=== PATIENT | male | born 1950 | race American Indian/Alaskan Native ===

== ENCOUNTER 2018-03-12 10:57 | Day surgery (SDC) | payer BC, MEDICARE ==
[2018-03-12 12:20] LABS: Basophils # (Auto) 0.1 K/mm3 (0.0-0.1); Basophils % (Auto) 1.2 % (0.0-1.8); Eosinophils # (Auto) 0.3 K/mm3 (0.0-0.4); Eosinophils % (Auto) 5.7 % (0.0-4.3); Hematocrit 45.5 % (35.5-45.6); Hemoglobin 14.9 gm/dl (11.8-15.2); Lymphocytes # (Auto) 1.5 K/mm3 (1.2-5.4); Lymphocytes % (Auto) 32.8 % (13.4-35.0); Mean Corpuscular HGB Conc 33 % (32-34); Mean Corpuscular Hemoglobin 30 pg (28-32); Mean Corpuscular Volume 91 fl (84-94); Monocytes # (Auto) 0.3 K/mm3 (0.0-0.8); Monocytes % (Auto) 7.4 % (0.0-7.3); Platelet Count 206 K/mm3 (140-440); Red Blood Count 4.99 M/mm3 (3.65-5.03); Red Cell Distribution Width 14.3 % (13.2-15.2)
[2018-03-12 12:30] LABS: INR 0.99 (0.87-1.13)
[2018-03-12 12:31] LABS: Partial Thromboplastin Time 33.3 Sec. (24.2-36.6)
[2018-03-12 12:50] LABS: Alanine Aminotransferase 8 units/L (7-56); Albumin 3.8 g/dL (3.9-5); BUN/Creatinine Ratio 10; Blood Urea Nitrogen 8 mg/dL (9-20); Calcium 11.2 mg/dL (8.4-10.2); Hemolysis Index 14
[2018-03-12] MEDS ORDERED: NACL 0.9% 1000 ML 1,000 ML IV SCH (13:00)
[2018-03-12] MEDS ORDERED: LEVAQUIN 500MG/100ML 500 MG/100 ML BAG IV NR (13:03)
[2018-03-12] MEDS ORDERED: XYLOCAINE 2% INFILTRATI ONE (13:07)
[2018-03-12] MEDS ORDERED: HEPARIN/NS 5000 UNIT/500ML(CATH LAB) 1,000 ML IR ONE (13:07)
[2018-03-12] MEDS ORDERED: HEPARIN 10,000 UNITS/10 ML ONE (13:07)
[2018-03-12] MEDS ORDERED: VERSED IV ONE (13:08)
[2018-03-12] MEDS ORDERED: SUBLIMAZE ONE (13:08)
--- NOTE | 2018-03-12 14:49 | Cat Scan Report ---
FINAL REPORT EXAM: CT ABDOMEN PELVIS WO CON HISTORY: kideny stones TECHNIQUE: CT examination of the ABDOMEN without IV contrast CT examination of the PELVIS without IV contrast PRIORS: None. FINDINGS: Nonspecific numerous nodules in both lung bases. Largest is 7.5 mm in the right lower lobe, series 2, image 7. Normal noncontrast appearance of the liver, gallbladder, adrenals, pancreas, and spleen. Normal caliber abdominal aorta with slight calcified atherosclerotic plaque. Normal caliber IVC. Nonspecific, smoothly marginated, simple appearing, low density bilateral renal lesions are statistically most likely cysts. Otherwise normal-appearing left kidney and ureter. Slight right hydronephrosis in the right kidney to the level of a large calculus in the right renal pelvis extending to the UPJ. Approximate transverse dimensions are 14 x 23 mm. Approximate sagittal dimension 26 mm. Slight fat stranding is nonspecific adjacent to the right renal pelvis. This may be postobstructive edema or pyelonephritis. Right mid and distal ureter normal. Severe prostate enlargement with mass effect on the urinary bladder base. Approximate transverse dimension 8.2 x 8.9 cm. Approximate sagittal dimension 9.4 cm including enlarged median lobe. Very small fat containing umbilical hernia. Very small bilateral fat containing inguinal hernia. Normal-appearing stomach and duodenum. Nonspecific scattered prominence of gas and fluid in the abdomen and pelvic small bowel without gross distention. This may reflect paralytic ileus. No pelvic free fluid. Normal-appearing seminal vesicles and slightly displaced urinary bladder by the enlarged prostate. Normal-appearing rectum. Moderate sigmoid diverticulosis without definite CT evidence of diverticulitis. Slight diverticulosis ascending colon. Normal-appearing cecum, terminal ileum, and appendix. No retroperitoneal adenopathy. No evidence of mesenteric mass. Scattered prominence of feces and gas throughout the nondistended colon may reflect a combination of mild constipation and mild paralytic ileus. IMPRESSION: Multiple bilateral pulmonary lung base nodules. Recommend followup chest CT to fully evaluate both lungs Large calculus in right UPJ with slight proximal right hydronephrosis. Fat stranding adjacent to the right renal pelvis may be postobstructive edema. Differential includes right pyelonephritis Severe prostate enlargement with mass effect on otherwise normal-appearing urinary bladder Very small fat containing hernias Prominent gas and fluid in the small bowel and colon may reflect paralytic ileus. There may be mild proximal colonic constipation Multifocal diverticulosis without definite CT evidence of diverticulitis
--- NOTE | 2018-03-12 15:12 | Short Stay Summary ---
Short Stay Documentation Date of service: 03/12/18 - History Principal diagnosis: right hydronephrosis H&P: obtained from office - Allergies and Medications Current Medications: Allergies No Known Allergies Allergy (Verified 03/12/18 12:38) Home Medications Medication Instructions Recorded Confirmed Last Taken Type Acetaminophen [Acetaminophen ER] 650 mg PO PRN PRN 03/12/18 03/12/18 03/10/18 History Ondansetron [Zofran ODT TAB] 4 mg PO PRN PRN 03/12/18 03/12/18 Unknown History oxyCODONE /ACETAMINOPHEN [Percocet 1 tab PO PRN PRN 03/12/18 03/12/18 3 Weeks Ago History 5/325 mg] ~02/19/18 Active Medications Sodium Chloride (Nacl 0.9% 1000 Ml) 1,000 mls @ 42 mls/hr IV DIRECT TISH Last Admin: 03/12/18 12:30 Dose: 42 mls/hr - Brief post op/procedure progress note Date of procedure: 03/12/18 Pre-op diagnosis: Right hydronephros Post-op diagnosis: same Procedure: Right NUS Anesthesia: local Surgeon: MADDY MARIE Estimated blood loss: minimal Pathology: none Condition: stable - Disposition Condition at discharge: Good Disposition: DC-01 TO HOME OR SELFCARE Short Stay Discharge Plan Activity: advance as tolerated Weight Bearing Status: Weight Bear as Tolerated Diet: regular Wound: keep clean and dry, per your surgeon's advice Follow up with: LUIS F MCLEAN MD [Primary Care Provider] - 7 Days KRISSY AVITIA MD [Staff Physician] - 03/13/18 9:45 am (Coming to outpatient surgery tomorrow no later than 9:45 AM)
--- NOTE | 2018-03-12 15:17 | Operative Report ---
Operative Report Operative Report: EXAM: ULTRASOUND AND FLUOROSCOPIC GUIDED PLACEMENT OF NEPHRO-URETERAL STENT CLINICAL INDICATION: PATIENT WITH OBSTRUCTING RIGHT RENAL STONE AND HYDRONEPHROSIS DATE: 03/12/2018 PROCEDURE: Following an explanation of the risks, benefits and alternatives; written informed consent was obtained. The patient was brought to the angiographic suite following diagnostic CT and placed in prone position on the examination table. His right back and flank were prepped and draped in the usual sterile fashion. 1% lidocaine was used for anesthesia. Using intermittent fluoroscopy and ultrasound guidance, a 15 cm 21-gauge needle was advanced into the renal pelvis just above the large renal stone. Contrast was then injected through the needle to opacify and mildly distended the renal calyces. An appropriate middle posterior calyx was chosen and an additional lidocaine injected for a second puncture. A second 15 cm 21-gauge needle was then advanced into the posterior middle calyx under fluoroscopic guidance. Contrast was injected to document appropriate positioning. A 0.018 guidewire was then advanced past stone in the proximal ureter. The needle was removed and an AccuStick transition dilator placed over the guidewire. The inner trocar and 018 guidewire were removed and a 0.035 guidewire was advanced through the transition dilator to the bladder. The transitional dilator was removed and a 5 Hungarian pigtail catheter was advanced over the guidewire and position so that pigtail was in the bladder. The guidewire was removed. Contrast was injected to document appropriate positioning. The catheter was then securely fastened of the skin and a sterile dressing applied. The patient tolerated the procedure well. There were no immediate post procedure complications. Conscious sedation was performed under the guidance of radiologic nursing. Continuous cardiopulmonary monitoring was utilized. IMPRESSION: 1) Ultrasound and fluoroscopic guided placement of right-sided nephro-ureteral stent.
[2018-03-12 16:26] VITALS: BP 138/81
== END 2018-03-12 16:46 | disposition home or self-care (01) ==
LOC: CATHLABREC 10:57
PROVIDERS: ATTEND Radiology Diagnostic Radiology
DX: N13.2 Hydronephrosis with renal and ureteral calculous obstruction (principal); Z79.01 Long term (current) use of anticoagulants
CPT/HCPCS: 36415; 50433; 74176; 80053; 85025; 85610; 85730; 86850; 86900; 86901; 99156; 99157; C1769; J1644; J1956; J2250; J3010; J7030; Q9967

== ENCOUNTER 2018-03-12 22:06 | Observation (INO) | payer BC, MEDICARE ==
[2018-03-12 23:05] LABS: Hematocrit 44.7 % (35.5-45.6); Mean Corpuscular HGB Conc 34 % (32-34); Mean Corpuscular Hemoglobin 31 pg (28-32); Mean Corpuscular Volume 91 fl (84-94); Platelet Count 200 K/mm3 (140-440); Red Blood Count 4.92 M/mm3 (3.65-5.03)
[2018-03-12] MEDS ORDERED: NACL 0.9% 1000 ML 1,000 ML IV ONE (23:11)
[2018-03-12] MEDS ORDERED: ZOFRAN IV ONE (23:11)
[2018-03-12] MEDS ORDERED: SUBLIMAZE IV ONE (23:11)
[2018-03-12] MEDS ORDERED: ATROPINE IV ONE (23:13)
[2018-03-12 23:27] LABS: Alanine Aminotransferase 8 units/L (7-56); Albumin 3.8 g/dL (3.9-5); BUN/Creatinine Ratio 9; Blood Urea Nitrogen 9 mg/dL (9-20); Calcium 11.4 mg/dL (8.4-10.2); Hemolysis Index 48
[2018-03-12] MEDS ORDERED: BABY ASPIRIN PO ONE (23:34)
--- NOTE | 2018-03-12 23:34 | Emergency Department Report ---
HPI - General Chief Complaint: Abdominal Pain Time Seen by Provider: 03/12/18 22:55 - HPI HPI: The patient is a 67-year-old male with a history of recent diagnosis of ureteral stone and hydronephrosis, and whom presents for evaluation of flank pain and abdominal pain. The patient reports recurrence of right flank pain radiating to the right lower abdomen, 10/10 in severity, sharp in quality, and constant since approximately 8 PM. He is also multiple episodes of nausea and vomiting. He shares that he received a ureter stent placement earlier today by vascular surgeon Dr. Alegre. He submits that he is scheduled for kidney stone removal by his urologist Dr. Jones in the morning. The patient denies fever , chills, night sweats, chest pain, dyspnea, hematemesis, diarrhea, blood in the stool, dark tarry stool, dysuria, hematuria, flank pain, genital discharge, inability to pass flatus. ED Past Medical Hx - Past Medical History Previous Medical History?: Yes Additional medical history: Kidney stone. - Social History Smoking Status: Never Smoker Substance Use Type: None - Medications Home Medications: Home Medications Medication Instructions Recorded Confirmed Last Taken Type Acetaminophen [Acetaminophen ER] 650 mg PO PRN PRN 03/12/18 03/12/18 03/10/18 History HYDROcodone/APAP 10-325 [[place] 1 each PO Q6HR PRN #20 tablet 03/12/18 Unknown Rx 10/325] Ondansetron [Zofran ODT TAB] 4 mg PO PRN PRN 03/12/18 03/12/18 Unknown History oxyCODONE /ACETAMINOPHEN [Percocet 1 tab PO PRN PRN 03/12/18 03/12/18 3 Weeks Ago History 5/325 mg] ~02/19/18 ED Review of Systems ROS: Stated complaint: ABD PAIN/VOMITING Other details as noted in HPI Constitutional: denies: fever ENT: denies: throat or neck pain Respiratory: denies: cough, shortness of breath Cardiovascular: denies: chest pain Endocrine: denies unexplained weight loss or gain Gastrointestinal: reports: abdominal pain, nausea Genitourinary: denies: dysuria Musculoskeletal: denies: leg swelling Skin: denies: rash Neurological: denies: headache Hematological/Lymphatic: denies: easy bleeding or easy bruising Psych: denies sadness or hopelessness Physical Exam - Physical Exam Vital Signs: Vital Signs 03/12/18 22:48 Temperature 98.2 F Pulse Rate 49 L Respiratory 20 Rate Blood Pressure 146/75 [Right] O2 Sat by Pulse 96 Oximetry Physical Exam: General: well-nourished, well-developed, no acute distress Head: Normocephalic, atraumatic Eyes: normal sclera ENT: Mucous membranes are pink and moist Neck: trachea midline, neck supple, No neck stiffness, no cervical adenopathy Respiratory: Breath sounds equal bilaterally, no wheezing, rales, or rhonchi Cardio: S1 and S2 present, no murmurs, rubs, gallops, capillary refill is brisk Abdomen: Normoactive bowel sounds, soft abdomen, RLQ tendenress, no rigidity, no guarding or rebound tenderness Chest WALL/Back: No tenderness to palpation of the chest wall, + right CVA tenderness with percussion Musc: No pitting edema Skin: No rash Neuro: no facial drooping, normal speech Psych: Normal affect ED Course Vital Signs 03/12/18 22:48 Temperature 98.2 F Pulse Rate 49 L Respiratory 20 Rate Blood Pressure 146/75 [Right] O2 Sat by Pulse 96 Oximetry ED Medical Decision Making - Lab Data Result diagrams: 03/12/18 22:48 03/12/18 22:48 - Medical Decision Making The patient was seen and examined by myself. 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 On initial evaluation, the patient was found to be in no distress. Evaluation orders are placed. IV access is established and the patient is given 1 L normal saline fluid bolus and Zofran for nausea, and IV analgesic for pain. Lab results were unrevealing. CT scan of the abdomen and pelvis exhibits a right ureter stone with moderate size hydronephrosis. The patient was reevaluated and found to remain with flank pain , nausea, and vomiting. The on-call hospitalist service was contacted. They agreed to admit the patient for further treatment and close monitoring. The ED admit order was placed. The patient was admitted in guarded condition. Critical care attestation.: If time is entered above; I have spent that time in minutes in the direct care of this critically ill patient, excluding procedure time. ED Disposition Clinical Impression: Bradycardia, Acute right flank pain, Dehydration, mild, Acute hyperglycemia Intractable nausea and vomiting Qualifiers: Vomiting type: unspecified Qualified Code(s): R11.2 - Nausea with vomiting, unspecified Disposition: DC-09 OP ADMIT IP TO THIS HOSP Is pt being admited?: Yes Does the pt Need Aspirin: Yes Condition: Serious Time of Disposition: 23:33
[2018-03-13 02:04] LABS: Basophils % (Manual) 0 % (0.0-1.8); Eosinophils % (Manual) 0 % (0.0-4.3); Platelet Estimate Consistent w Auto; Total Cells Counted 100
[2018-03-13] MEDS ORDERED: ZOFRAN IV PRN ×2 (02:04→11:37)
[2018-03-13] MEDS ORDERED: TYLENOL PO PRN (02:04)
--- NOTE | 2018-03-13 02:06 | Cat Scan Report ---
FINAL REPORT EXAM: CT ABDOMEN PELVIS W CON HISTORY: Abdominal pain. TECHNIQUE: Axial CT images of the abdomen and pelvis were obtained, following the administration of intravenous contrast. Axial delayed images and coronal and sagittal reformatted images were also obtained. Correlation is made with unenhanced CT exam performed 03/12/2018. FINDINGS: The liver, biliary tree, gallbladder, spleen, and adrenal glands are unremarkable. Note is made of a 9 mm prominent fat lobule at the inferior pancreatic head. There are multiple bilateral renal cysts, measuring up to 8.2 cm in the left lower pole and 5.1 cm in the right lower pole. Again demonstrated is 2.3 x 1.5 x 2.6 cm stone in the right renal pelvis/UPJ. There has been interval placement of a percutaneous stent, which extends from the right back through the posterior aspect of the right renal pelvis, extending inferiorly within the right ureter, with its distal coil located in the urinary bladder lumen. There are associated foci of air in the right renal pelvis, right ureter, and bladder lumen, and also several small foci of free air in the posterior right perirenal fat, in keeping with recent postsurgical state. There is moderate edema/soft tissue stranding in the posterior right perinephric soft tissues and also surrounding the right renal pelvis. There associated urothelial thickening of the right renal pelvis. These findings were also seen on prior exam, though progressed in the interval, and likely represents acute postsurgical findings superimposed upon underlying inflammatory/post obstructive changes. Moderate right hydronephrosis is again demonstrated, similar in appearance. There is no contrast extravasation on the delayed images. Evaluation of the bowel is limited due to lack of oral contrast. The stomach is partially collapsed, not well evaluated. Scattered diverticula are seen in the ascending and descending colon. There is no intestinal obstruction. The abdominal aorta is normal in caliber. There is no pathologic abdominal or pelvic lymphadenopathy. There is no free or loculated fluid collection. The prostate gland is markedly enlarged, measuring 9.0 x 8.8 cm. There is mild thickening of the anterior urinary bladder wall. There is a tiny fat containing periumbilical ventral hernia. Mild spondylotic and degenerative changes are seen in the spine. There also degenerative changes at both anterior sacroiliac joints. There are increased dependent changes at both posterior lung bases. IMPRESSION: 1. 2.3 x 1.5 x 2.6 cm stone in the right renal pelvis/UPJ, with continued moderate right hydronephrosis. 2. Status post interval placement of percutaneous right ureteral stent, with its distal coil in the urinary bladder lumen. Associated moderate right perinephric and parapelvic soft tissue stranding/edema, likely postsurgical changes superimposed upon underlying inflammatory/postobstructive findings (which were also seen on preoperative CT scan). Stable urothelial thickening of the right renal pelvis. 3. Bilateral renal cysts. 4. Markedly enlarged prostate gland. Mild thickening of the anterior urinary bladder wall. 5. Colonic diverticula.
[2018-03-13 03:21] LABS: Bacteria,Urine 2+ /HPF (Negative); Bilirubin,Urine NEG (Negative); Blood,Urine LG (Negative); Color,Urine Yellow (Yellow)
[2018-03-13 03:22] LABS: RBC,Urine > 182.0 /HPF (0.0-6.0); WBC,Urine > 182.0 /HPF (0.0-6.0)
[2018-03-13] MEDS: MORPHINE IV PRN ×2 (03:22→08:38)
--- NOTE | 2018-03-13 06:14 | History and Physical Report ---
CHIEF COMPLAINT: Abdominal pain. HISTORY OF PRESENT ILLNESS: The patient is a 67-year-old male who presented to the emergency room because of abdominal pain. The patient was seen in this hospital on 03/12/2018 and had a stent placed in the right genitourethral system and then started having abdominal pain. The patient was also noted to have right kidney stone and is scheduled to have intervention by the urologist in the morning of 03/13/2018 and developed this abdominal pain that brought patient to the Emergency Room. While being evaluated for abdominal pain, patient was noted to have low heart rate radiating down to the 40s, it went as low as 47. The patient denied history of chest pain, history of shortness of breath, fever, chills, cough, and was subsequently evaluated and presented for admission mainly because of bradycardia. PAST MEDICAL HISTORY: Pertinent for kidney stones. PAST SURGICAL HISTORY: Pertinent for recent stent placement. FAMILY HISTORY: Noncontributory. SOCIAL HISTORY: The patient lives with family. Does not smoke, does not drink alcohol, and does not use illicit drugs. MEDICATIONS: The patient is on [place] 10/325 one by mouth every 6 hours as needed for pain, Zofran 4 mg by mouth as needed for nausea and vomiting, and Percocet 5/325 one tablet by mouth as needed for pain. ALLERGIES: THE PATIENT IS ALLERGIC TO PENICILLIN. REVIEW OF SYSTEMS: CONSTITUTIONAL: There is no fever, no chills, no diaphoresis. HEENT: There is no headache or sore throat. CARDIOVASCULAR SYSTEM: There is no chest pain or orthopnea. RESPIRATORY SYSTEM: There is no shortness of breath or cough. GASTROINTESTINAL SYSTEM: Abdominal pain present. There is no nausea, no vomiting, no diarrhea or constipation. NEUROLOGICAL SYSTEM: There is no numbness, no dizziness, no altered mental status. MUSCULOSKELETAL SYSTEM: There is no joint pain or swelling. DERMATOLOGICAL SYSTEM: There is no skin rash or itching. GENITOURINARY SYSTEM: There is dysuria. No report of hematuria. There is flank pain. Rest of system review is normal. PHYSICAL EXAMINATION: GENERAL: At the time of exam, the patient was found to be alert, oriented x 3, and in mild distress due to abdominal pain. VITAL SIGNS: Shows normal temperature with pulse rate as low as 47, respirations of 16, blood pressure 146/70, O2 sat of 98% on room air. HEENT: Show pupils to be equal, round, reactive to light and accommodation. Extraocular muscles are intact. NECK: Supple with no JVD or carotid bruit. CARDIOVASCULAR SYSTEM: Showed normal first and second heart sounds which is low with no gallops or murmurs elicited. RESPIRATORY SYSTEM: Show good air entry on both sides of the lungs with no abnormal breath sounds. GASTROINTESTINAL SYSTEM: Show abdomen to be soft, full, nontender with no organomegaly or rigidity. NEUROLOGIC: Shows no focal deficit. MUSCULOSKELETAL SYSTEM: Show no joint swelling or tenderness. DERMATOLOGICAL SYSTEM: Show no skin rash. GENITOURINARY SYSTEM: Show right costovertebral angle tenderness. PERTINENT LABORATORY AND IMAGING STUDIES: The patient's CBC done that came back unremarkable with normal WBC, normal hemoglobin, and normal hematocrit with CBC differential showing elevated segmented neutrophils. The patient's chemistry shows normal sodium, normal potassium, normal chloride level with low CO2 of 19, elevated glucose of 176 and elevated calcium of 11.4. The patient's rest of chemistry was unremarkable. IMAGING STUDIES: The patient has CT of the abdomen and pelvis done that shows 2.3 x 1.2 x 2.6 cm stone in the right renal pelvis/UP junction which continued with moderate right hydronephrosis. The patient also was noted to have status post interval placement of percutaneous right urethral stent. There is finding of markedly enlarged prostate gland with mild thickening of the anterior urinary bladder wall. There is also finding of colonic diverticula. DIAGNOSES: 1. Bradycardia. 2. Abdominal pain. 3. Right kidney stone. PLAN: The patient will be admitted to medical floor and will be on IV normal saline at 75 mL an hour. The patient will continue Urology consult with Dr. Iverson for possible intervention this morning. The patient will have cardiology consult with Dr. Cardona for evaluation of the bradycardia and will have 2D echo done this morning. The patient will also have cardiac enzymes checked q.6 hours x 2 more levels and will be on Tylenol 650 mg by mouth every 4 hours for fever and headache and will be on IV morphine 2 mg every 3 hours as needed for pain as well as IV Zofran 4 mg every 8 hours for nausea and vomiting. The patient will be on aspirin 325 mg by mouth daily. Further management of patient's kidney stone and bradycardia will be undertaken by both Urology and Cardiology consults. The patient's home medication will be applied as shown in the medication reconciliation section. JOB# [id number] OCN/NTS MTDD
[2018-03-13 07:49] LABS: Creatine Kinase MB 1.8 ng/mL (0.0-4.0)
--- NOTE | 2018-03-13 10:18 | Consultation ---
History of Present Illness Consult date: 03/13/18 Consult reason: bradycardia History of present illness: This is a 67yr old male with a history of renal stone and hydronephrosis. On yesterday, as an outpatient, he underwent placement of right sided nephro- ureteral stent. Shortly after he was discharged home, patient developed flank pain, abdominal pain with nausea vomiting and presented to the emergency department for evaluation. A cardiac consultation was requested because on presentation, the patient demonstrated a marked sinus bradycardia with heart rate in the mid 40's to 50's on telemetry monitoring. There were no bradyarrhythmias reported. Blood presure has remained stable. There is no EKG available for review. There were no reports of chest pain, shortness of breath or palpitations. Patient denies syncope. Patient denies a cardiac history. There is no prior cardiac workup. Medications and Allergies Allergies Allergy/AdvReac Type Severity Reaction Status Date / Time Penicillins Allergy Itching Verified 03/12/18 22:51 Home Medications Medication Instructions Recorded Confirmed Last Taken Type Acetaminophen [Acetaminophen ER] 650 mg PO PRN PRN 03/12/18 03/13/18 03/10/18 History HYDROcodone/APAP 10-325 [[place] 1 each PO Q6HR PRN #20 tablet 03/12/18 03/13/18 Unknown Rx 10/325] Ondansetron [Zofran ODT TAB] 4 mg PO PRN PRN 03/12/18 03/13/18 03/12/18 History oxyCODONE /ACETAMINOPHEN [Percocet 1 tab PO PRN PRN 03/12/18 03/13/18 03/12/18 History 5/325 mg] Active Meds: Active Medications Acetaminophen (Tylenol) 650 mg PO Q4H PRN PRN Reason: For Pain/Fever/Headache Aspirin (Aspirin) 325 mg PO QDAY TISH Sodium Chloride (Nacl 0.9% 1000 Ml) 1,000 mls @ 75 mls/hr IV DIRECT TISH Morphine Sulfate (Morphine) 2 mg IV Q3H PRN PRN Reason: Pain, Moderate (4-6) Last Admin: 03/13/18 08:38 Dose: 2 mg Ondansetron HCl (Zofran) 4 mg IV Q8H PRN PRN Reason: Nausea And Vomiting Last Admin: 03/13/18 08:39 Dose: 4 mg Physical Examination Vital Signs Pulse Ox 98 03/12/18 22:34 General appearance: no acute distress HEENT: Positive: PERRL Cardiac: Positive: Bradycardia Lungs: Positive: Decreased Breath Sounds Neuro: Positive: Grossly Intact Extremities: Absent: edema Results 03/12/18 22:48 03/12/18 22:48 Cardiac Enzymes 03/12/18 03/13/18 Range/Units 22:48 05:52 AST 13 (5-40) units/L CK-MB (CK-2) 1.8 (0.0-4.0) ng/mL CBC 03/12/18 Range/Units 22:48 WBC 10.5 (4.5-11.0) K/mm3 RBC 4.92 (3.65-5.03) M/mm3 Hgb 15.0 (11.8-15.2) gm/dl Hct 44.7 (35.5-45.6) % Plt Count 200 (140-440) K/mm3 Comprehensive Metabolic Panel 03/12/18 Range/Units 22:48 Sodium 139 (137-145) mmol/L Potassium 4.3 (3.6-5.0) mmol/L Chloride 102.5 (98-107) mmol/L Carbon Dioxide 19 L (22-30) mmol/L BUN 9 (9-20) mg/dL Creatinine 1.0 (0.8-1.5) mg/dL Glucose 176 H (75-100) mg/dL Calcium 11.4 H (8.4-10.2) mg/dL AST 13 (5-40) units/L ALT 8 (7-56) units/L Alkaline Phosphatase 119 (35-129) units/L Total Protein 7.0 (6.3-8.2) g/dL Albumin 3.8 L (3.9-5) g/dL Assessment and Plan - Patient Problems (1) Bradycardia Current Visit: Yes Status: Acute Plan to address problem: patient remains asymptomatic We will check a TSH and serum magnesium. Obtain a 12 lead ECG. Echocardiogram for LVEF assessment. Avoid AV alejo blocking agents.
[2018-03-13] MEDS: ASPIRIN PO SCH (10:45)
[2018-03-13] MEDS ORDERED: NEURONTIN PO NR (11:24)
[2018-03-13] MEDS ORDERED: DILAUDID IV PRN (11:37)
--- NOTE | 2018-03-13 11:37 | Anesthesia Consultation ---
Anesthesia Consult and Med Hx Date of service: 03/13/18 - Airway Anesthetic Teeth Evaluation: Poor ROM Head & Neck: Adequate Mental/Hyoid Distance: Adequate Mallampati Class: Class III Intubation Access Assessment: Possibly Difficult - Pulmonary Exam CTA: Yes - Cardiac Exam Cardiac Exam: RRR - Pre-Operative Health Status ASA Pre-Surgery Classification: ASA3 Proposed Anesthetic Plan: General - Central Nervous System CVA: No - Other Systems Hx Cancer: No
--- NOTE | 2018-03-13 11:37 | Anesthesia Day of Surgery ---
Anesthesia Day of Surgery - Day of Surgery Patient Examined: Yes Patient H&P Reviewed: Yes Patient is NPO: Yes
[2018-03-13] MEDS ORDERED: LEVAQUIN 500MG/100ML 500 MG/100 ML BAG IV NR (11:43)
[2018-03-13] MEDS ORDERED: DIPRIVAN 10 MG/ML IV ONE (11:45)
[2018-03-13] MEDS ORDERED: ZEMURON IV ONE (11:56)
[2018-03-13] MEDS ORDERED: XYLOCAINE MPF 2% ONE (11:57)
[2018-03-13] MEDS: NACL 0.9% 1000 ML 1,000 ML IV SCH (12:00)
[2018-03-13] MEDS ORDERED: VERSED IV NR (12:00)
[2018-03-13] MEDS ORDERED: ROBINUL ONE (12:49)
[2018-03-13] MEDS ORDERED: NACL 0.9% IR ONE ×2 (13:01)
[2018-03-13] MEDS ORDERED: MINERAL OIL TOPICAL LIGHT TP ONE ×3 (13:08)
[2018-03-13] MEDS ORDERED: OMNIPAQUE (300 MG) IR ONE ×2 (13:09)
[2018-03-13] MEDS ORDERED: NACL 0.9% 500 ML 500 ML IV SCH (13:15)
[2018-03-13] MEDS ORDERED: LASIX ONE (14:34)
[2018-03-13] MEDS ORDERED: ZOFRAN ONE (14:39)
--- NOTE | 2018-03-13 14:45 | Post Operative Note ---
Date of procedure: 03/13/18 Pre-op diagnosis: huge r renal stone Post-op diagnosis: same Findings: as above Procedure: r perc nephrolitghotomy Anesthesia: GETA Surgeon: KRISSY AVITIA Estimated blood loss: minimal Pathology: list (stones) Specimen disposition: given to patient/family Condition: stable Disposition: PACU
[2018-03-13] MEDS ORDERED: PERCOCET 5/325 PO PRN (14:50)
[2018-03-13] MEDS ORDERED: ZOFRAN ODT PO PRN (14:50)
[2018-03-13] MEDS ORDERED: NORCO 10/325 PO PRN (14:50)
[2018-03-13 16:29] LABS: Creatine Kinase MB 1.7 ng/mL (0.0-4.0)
--- NOTE | 2018-03-13 17:05 | Progress Note ---
Assessment and Plan This is a 67yr old male with a history of renal stone and hydronephrosis. Seen , as an outpatient, where underwent placement of right sided nephro- ureteral stent. On getting home, he developed right flank pain, abdominal pain with nausea vomiting. Therefore presented to the emergency department for evaluation. Nephrology consult. right percutanous Nephrolithotomy done - Right renal stone s/p right percutanous nephrolithotomy - right hydronephrosis secondary to renal stone - Hyperclacemia will check PTH, Phosphorus Continu with Normal saline - Hyperglycemia Check A1c trend glycemic level Commence SSI if BG> 180 - DVT and GI PPx with heparin and Pepcid Subjective Date of service: 03/13/18 Principal diagnosis: right kidney stone Interval history: Pt seen and examined. Denies nay fever. Still has right flank pain Objective - Constitutional Vitals: Vital Signs - 12hr 03/13/18 03/13/18 03/13/18 07:30 08:33 08:41 Temperature 99.4 F Pulse Rate 51 L Respiratory 18 Rate Blood Pressure 137/77 118/63 153/90 O2 Sat by Pulse 95 100 98 Oximetry 03/13/18 03/13/18 03/13/18 08:51 09:01 09:11 Temperature Pulse Rate Respiratory Rate Blood Pressure 166/93 166/93 166/93 O2 Sat by Pulse 99 99 99 Oximetry 03/13/18 03/13/18 03/13/18 09:21 09:31 09:41 Temperature Pulse Rate Respiratory Rate Blood Pressure 166/93 166/93 166/93 O2 Sat by Pulse 98 98 99 Oximetry 03/13/18 03/13/18 03/13/18 09:51 10:00 10:05 Temperature Pulse Rate 55 L Respiratory Rate Blood Pressure 166/93 166/93 O2 Sat by Pulse 98 96 Oximetry 03/13/18 03/13/18 03/13/18 10:11 10:21 10:50 Temperature 98.5 F Pulse Rate 48 L Respiratory 16 Rate Blood Pressure 166/93 166/93 128/68 O2 Sat by Pulse 79 L 95 Oximetry 03/13/18 03/13/18 03/13/18 14:56 15:05 15:16 Temperature 98.5 F Pulse Rate 80 76 76 Respiratory 14 14 14 Rate Blood Pressure 157/93 159/98 152/96 O2 Sat by Pulse 98 98 96 Oximetry 03/13/18 03/13/18 15:51 16:00 Temperature 98.5 F 98.5 F Pulse Rate 48 L 48 L Respiratory 20 14 Rate Blood Pressure 151/85 151/81 O2 Sat by Pulse 100 100 Oximetry General appearance: Present: no acute distress, well-nourished - EENT Eyes: PERRL, EOM intact Ears: bilateral: normal - Neck Neck: supple, normal ROM - Respiratory Respiratory effort: normal Respiratory: bilateral: CTA - Cardiovascular Rhythm: regular Heart Sounds: Present: S1 & S2. Absent: gallop, rub Extremities: pulses intact, No edema, normal color, Full ROM - Gastrointestinal General gastrointestinal: Present: soft, non-tender, non-distended, normal bowel sounds - Integumentary Integumentary: clear, warm, dry - Musculoskeletal Musculoskeletal: 1, strength equal bilaterally - Neurologic Neurologic: moves all extremities - Psychiatric Psychiatric: memory intact, appropriate mood/affect, intact judgment & insight - Labs CBC & Chem 7: 03/12/18 22:48 03/12/18 22:48 Labs: Abnormal lab results 03/12/18 03/12/18 03/12/18 Range/Units 02:54 22:48 22:48 Seg Neuts % (Manual) 93.0 H (40.0-70.0) % Lymphocytes % (Manual) 3.0 L (13.4-35.0) % Seg Neutrophils # Man 9.8 H (1.8-7.7) K/mm3 Lymphocytes # (Manual) 0.3 L (1.2-5.4) K/mm3 Carbon Dioxide 19 L (22-30) mmol/L Glucose 176 H (75-100) mg/dL Calcium 11.4 H (8.4-10.2) mg/dL Albumin 3.8 L (3.9-5) g/dL Ur Specific Reading 1.060 H (1.003-1.030) Urine WBC (Auto) > 182.0 H (0.0-6.0) /HPF Crossmatch 03/13/18 Range/Units 13:15 Seg Neuts % (Manual) (40.0-70.0) % Lymphocytes % (Manual) (13.4-35.0) % Seg Neutrophils # Man (1.8-7.7) K/mm3 Lymphocytes # (Manual) (1.2-5.4) K/mm3 Carbon Dioxide (22-30) mmol/L Glucose (75-100) mg/dL Calcium (8.4-10.2) mg/dL Albumin (3.9-5) g/dL Ur Specific Reading (1.003-1.030) Urine WBC (Auto) (0.0-6.0) /HPF Crossmatch See Detail - Imaging and cardiology Chest x-ray: report reviewed
--- NOTE | 2018-03-14 03:29 | Operative Report ---
PREOPERATIVE DIAGNOSIS: Huge right renal stone. POSTOPERATIVE DIAGNOSIS: Huge right renal stone. PROCEDURE: Right percutaneous nephrolithotomy, nephrostogram, stent placement. SURGEON: Juanito Iverson MD ANESTHESIA: General. FINDINGS: This is a gentleman with a 3 cm renal and pelvic stone. He now presents for percutaneous nephrolithotomy. All risks and implications discussed. PROCEDURE: The patient brought to the operating room and placed on the operating table. Following induction of anesthesia, placed in the prone position, prepped and draped in usual sterile fashion. Quevedo catheter was initially inserted. At this point, a rigid wire placed down in the bladder and a nephroureteral stent was withdrawn. We opened up the incision for approximately 1.5 cm. Hemostasis was good. We used the ____ and placed a safety wire with the safety guidewire set in the bladder. At this point, the safety guidewire was secured. We used a co-axial dilators to a 24-[place]. It was tight by the fascia, so we used the balloon as well and then ended up putting a 20-inch sheath next to the stone. The patient tolerated the procedure well. A flexible nephroscopy showed the stone and then rigid nephroscopy. We started with the LithoClast and the ultrasound, ____ in the stones. We had to use the 5-[place] EHL machine to break it up all the way. The patient tolerated the procedure well. No significant complications. A nephrostogram showed a nephrostomy tube over a nephroureteral stent in good position, it was connected to a bag. He was brought to recovery room in stable condition with Quevedo catheter and nephrostomy tube. JOB# [id number] LIOR/MICHAEL
[2018-03-14] MEDS: MORPHINE IV PRN (03:34)
[2018-03-14] MEDS: NACL 0.9% 1000 ML 1,000 ML IV SCH (03:35)
[2018-03-14 06:07] LABS: Basophils % (Auto) 0.2 % (0.0-1.8); Eosinophils % (Auto) 0.1 % (0.0-4.3); Hemoglobin 13.9 gm/dl (11.8-15.2); Lymphocytes # (Auto) 0.8 K/mm3 (1.2-5.4); Lymphocytes % (Auto) 5.9 % (13.4-35.0); Mean Corpuscular HGB Conc 33 % (32-34); Mean Corpuscular Hemoglobin 30 pg (28-32); Mean Corpuscular Volume 92 fl (84-94); Monocytes # (Auto) 0.9 K/mm3 (0.0-0.8); Platelet Count 170 K/mm3 (140-440); Red Blood Count 4.56 M/mm3 (3.65-5.03); Red Cell Distribution Width 14.1 % (13.2-15.2)
[2018-03-14 06:33] LABS: Alanine Aminotransferase 6 units/L (7-56); Albumin 3.4 g/dL (3.9-5); BUN/Creatinine Ratio 10; Blood Urea Nitrogen 11 mg/dL (9-20); Hemolysis Index 5
[2018-03-14] MEDS ORDERED: DULCOLAX PR PRN (06:43)
[2018-03-14] MEDS ORDERED: MILK OF MAGNESIA PO PRN (06:44)
[2018-03-14 08:51] VITALS: BP 110/62
--- NOTE | 2018-03-14 09:01 | Progress Note ---
Assessment and Plan doing well home with neph tube Subjective Date of service: 03/14/18 Principal diagnosis: right kidney stone Objective - Constitutional Vitals: Vital Signs - 12hr 03/14/18 03/14/18 01:59 08:42 Temperature 99.8 F H 98.3 F Pulse Rate 58 L Respiratory 18 20 Rate Blood Pressure 119/63 110/62 O2 Sat by Pulse 96 Oximetry General appearance: Present: no acute distress - Neck Neck: supple - Respiratory Respiratory effort: normal Extremities: no ischemia - Gastrointestinal General gastrointestinal: Present: soft, non-tender - Labs CBC & Chem 7: 03/14/18 05:07 03/14/18 05:07 Labs: Abnormal lab results 03/13/18 03/14/18 03/14/18 Range/Units 13:15 05:07 05:07 WBC 13.2 H (4.5-11.0) K/mm3 Lymph % (Auto) 5.9 L (13.4-35.0) % Lymph # 0.8 L (1.2-5.4) K/mm3 [place] # 0.9 H (0.0-0.8) K/mm3 Seg Neutrophils % 86.8 H (40.0-70.0) % Seg Neutrophils # 11.5 H (1.8-7.7) K/mm3 Calcium 11.0 H (8.4-10.2) mg/dL Phosphorus 2.30 L (2.5-4.5) mg/dL ALT 6 L (7-56) units/L Total Protein 5.6 L (6.3-8.2) g/dL Albumin 3.4 L (3.9-5) g/dL Crossmatch See Detail
--- NOTE | 2018-03-14 09:03 | Discharge Summary ---
Short Stay Discharge Plan Activity: other (no straining ) Weight Bearing Status: Full Weight Bearing Diet: low fat, low salt, diabetic Wound: keep clean and dry Special Instructions: other (teach pt to change dressing q day ) Durable Medical Equipment Needed Upon Discharge: other (nephrostomt tube ) Follow up with: PRIMARY CARE, [Primary Care Provider] - 3-5 Days KRISSY AVITIA MD [Staff Physician] - 7 Days
[2018-03-14] MEDS: ASPIRIN PO SCH (10:26)
--- NOTE | 2018-03-14 10:45 | Discharge Summary ---
Providers - Providers Date of Admission: 03/13/18 00:18 Attending physician: PAWAN CHOW MD 03/13/18 06:07 Consult to Physician [CONS] Routine Comment: doctor has been informed/josue Consulting Provider: KRISSY AVITIA Physician Instructions: Reason For Exam: KIDNEY STONE 03/13/18 06:09 Consult to Physician [CONS] Routine Comment: Consulting Provider: MARIO ALBERTO VELIZ Physician Instructions: Reason For Exam: BRADYCARDIA Primary care physician: MERCURY CELL CLEANER Hospitalization Reason for admission: flank pain Condition: Serious Hospital course: This is a 67yr old male with a history of renal stone and hydronephrosis. Seen , as an outpatient, where underwent placement of right sided nephro- ureteral stent. On getting home, he developed right flank pain, abdominal pain with nausea vomiting. Therefore presented to the emergency department for evaluation. Nephrology consult. right percutanous Nephrolithotomy done. Patient is stable this morning we'll start on empiric antibiotics, discharged to follow up with urologist outpatient. - Right renal stone s/p right percutanous nephrolithotomy - right hydronephrosis secondary to renal stone - Hyperclacemia -Resolved with initiation of fluids - Hyperglycemia With no evidence of diabetes mellitus lab study. Disposition: DC-01 TO HOME OR SELFCARE Time spent for discharge: 35 mins Core Measure Documentation - Palliative Care Palliative Care/ Comfort Measures: Not Applicable - Core Measures Any of the following diagnoses?: none - VTE Discharge Requirements Deep Vein Thrombosis/Pulmonary Embolism Present on Admission: No Exam - Physical Exam Narrative exam: VITAL SIGNS: Reviewed. GENERAL: The patient appeared well nourished and normally developed. Vital signs as documented. HEAD: No signs of head trauma. EYES: Pupils are equal. Extraocular motions intact. EARS: Hearing grossly intact. MOUTH: Oropharynx is normal. NECK: No adenopathy, no JVD. CHEST: Chest with clear breath sounds bilaterally. No wheezes, rales, or rhonchi. CARDIAC: Regular rate and rhythm. S1 and S2, without murmurs, gallops, or rubs. VASCULAR: No Edema. Peripheral pulses normal and equal in all extremities. ABDOMEN: Soft, without detectable tenderness. No sign of distention. No rebound or guarding, and no masses palpated. Bowel Sounds normal. MUSCULOSKELETAL: Good range of motion of all major joints. Extremities without clubbing, cyanosis or edema. NEUROLOGIC EXAM: Alert and oriented x 3. No focal sensory or strength deficits. Speech normal. Follows commands. PSYCHIATRIC: Mood normal. SKIN: No rash or lesions. - Constitutional Vitals: Temp Pulse Resp BP Pulse Ox 98.3 F 58 L 20 110/62 96 03/14/18 08:42 03/14/18 08:42 03/14/18 08:42 03/14/18 08:42 03/14/18 08:42 Plan Activity: advance as tolerated, fall precautions Diet: advance as tolerated Wound: per your surgeon's advice Follow up with: KRISSY AVITIA MD [Staff Physician] - 7 Days PRIMARY CARE, [Primary Care Provider] - 3-5 Days
--- NOTE | 2018-03-14 10:55 | Query- Nutrition ---
Usman Golden Date:___03/14/2018 Programs Director/CDS:__Zoraida Phone#:___[phone] Exercise your independent professional judgment when responding to query. Questions asked do not imply a particular answer is desired or expected. We greatly appreciate your clarification on this issue. Clinical Documentation States: 67 Year old male was admitted on 03/13/2018 for flank pain, abdominal pain with nausea and vomiting. Clinical Findings Show: Albumin (03/14): 3.4 Please select the most appropriate option 3 [x] Mild Malnutrition [] Mild - Moderate Malnutrition [] Moderate - Severe Malnutrition [] Severe Malnutrition Serum Albumin 2.8 to 3.4 g/dl or Pre-albumin 5 to 17 mg/dl1,2 Inadequate nutritional intake1,2,3,4 NPO > 5 days Weight loss: 5% in 1 month or 7.5% in 3 months or 10% in 6 months1, 3,4 BMI 16 to 18.4 or Weight <90% of ideal body weight1,2,3,4 Serum Albumin < 2.8 g/ dl1,2 Lymphocytes < 1500/ L2 Inadequate nutritional intake3, high stress e.g. major trauma, sepsis,pancreatitis, law[place] etc. Decubitus ulcers1,2, , skin breakdown2, easy hair pluckability2 Weight <80% standard for height2 Triceps skin fold <3 mm2 Mid-arm muscle circumference <15 cm2 Creatinine-height index <60% standard2 [ ] Cachexia [ ] Emaciated w/Malnutrition [ ] Other: [ ] Unable to determine [ ] Comment/Explanation: Present on Admission: [ y] Yes (Y) [ ] Clinically undeterminable (W) [ ] No (N) Please also document response in your Progress Notes and/or Discharge Summary and indicate if the condition was present on admission. MTDD
--- NOTE | 2018-03-15 07:27 | Fluoroscopy Report ---
Right nephrostogram with retrieval of calculus at the pelvis of the right ureter. History: Right renal stone. Findings: Percutaneous nephrostomy performed. There is presence of calculus at the UP junction on the initial fluoroscopic images. Breakdown of stone with lithotripsy and subsequent removal with a grasper is noted. No calculus identified in the bladder. Stable right ureteral stent. Impression: Findings as detailed above.
--- NOTE | 2018-03-15 16:17 | Fluoroscopy Report ---
SIX FLUOROSCOPIC IMAGES AT RIGHT FLUOROSCOPIC NEPHROSTOGRAM: 03/13/18 CLINICAL: Right renal calculus. FINDINGS: A plaster lather image demonstrates a large right upper quadrant calculus which appears to be in the right renal pelvis. Subsequent images demonstrate placement of a wire and a right nephrostomy tube. Final images demonstrate no residual calculus and a mildly dilated renal pelvis which is opacified with contrast. For more detail, please refer to the operative report.
== END 2018-03-14 13:20 | disposition home or self-care (01) ==
LOC: ED 22:06 → INTOOBSV 03-13 00:18 → 2B-ACE 03-13 00:18
PROVIDERS: ADMIT Internal Medicine; ATTEND Internal Medicine
DX: N20.0 Calculus of kidney (principal); R00.1 Bradycardia, unspecified
CPT/HCPCS: 36415; 50431; 74177; 74485; 80053; 81001; 82550; 82553; 83036; 83735; 83880; 84100; 84443; 84484; 85007; 85025; 86850; 86900; 86901; 93005; 93010; 93306; 96374; 96375; 96376; 99285; A4217; C1726; C1758; C1769; C2617; G0378; J0461; J1170; J1940; J1956; J2250; J2270; J2405; J2704; J3010; J7030; Q9967; 86920; 96361

== ENCOUNTER 2018-11-04 07:21 | Inpatient (IN) | payer BC, MEDICARE ==
[~2018-11-04 07:21] MED LIST: ANCEF/STERILE WATER 2 GM/20 ML 2 GM/20 ML SYRINGE IV NR; NACL 0.9% 1000 ML 1,000 ML IV SCH
--- NOTE | 2018-11-04 08:38 | Short Stay Summary ---
Short Stay Documentation Date of service: 11/04/18 - History Principal diagnosis: Right renal stone Past Medical History: other (right renal stone) Past Surgical History: Other (right NUS and laser lithotripsy) Social history: no significant social history - Allergies and Medications Current Medications: Allergies Penicillins Allergy (Verified 03/12/18 22:51) Itching Home Medications Medication Instructions Recorded Confirmed Last Taken Type Acetaminophen [Acetaminophen ER] 650 mg PO PRN PRN 03/12/18 03/13/18 03/10/18 History HYDROcodone/APAP 10-325 [[place] 1 each PO Q6HR PRN #20 tablet 03/12/18 03/13/18 Unknown Rx 10-325 mg TAB] Ondansetron [Zofran ODT TAB] 4 mg PO PRN PRN 03/12/18 03/13/18 03/12/18 History oxyCODONE /ACETAMINOPHEN [Percocet 1 tab PO PRN PRN 03/12/18 03/13/18 03/12/18 History 5/325 mg] Active Medications Cefazolin Sodium (Ancef/Sterile Water 2 Gm/20 Ml) 2 gm in 20 mls @ 80 mls/hr IV PREOP NR; Protocol Sodium Chloride (Nacl 0.9% 1000 Ml) 1,000 mls @ 42 mls/hr IV DIRECT TISH - Physical exam General appearance: no acute distress HEENT: Atraumatic Lungs: Normal air movement Breasts: deferred Heart: Regular rate Gastrointestinal: normal Male Genitourinary: deferred Female Genitourinary: deferred Rectal Exam: deferred Extremities: Full ROM Neurological: Normal gait, Normal speech - Brief post op/procedure progress note Date of procedure: 11/04/18 Pre-op diagnosis: right renal stone Post-op diagnosis: same Procedure: Right NUS placement Anesthesia: local Surgeon: MADDY MARIE Estimated blood loss: minimal Pathology: none Condition: stable - Disposition Condition at discharge: Good Disposition: DC/TX-02 SHRT-TRM GEN HOSP IP Short Stay Discharge Plan Activity: advance as tolerated Weight Bearing Status: Weight Bear as Tolerated Diet: regular Wound: keep clean and dry, per your surgeon's advice Follow up with: RADHA DOWLING MD [Primary Care Provider] - 7 Days
[2018-11-04 08:58] LABS: Basophils % (Auto) 0.3 % (0.0-1.8); Eosinophils # (Auto) 0.2 K/mm3 (0.0-0.4); Eosinophils % (Auto) 3.3 % (0.0-4.3); Hematocrit 44.5 % (35.5-45.6); Hemoglobin 14.8 gm/dl (11.8-15.2); Lymphocytes # (Auto) 1.4 K/mm3 (1.2-5.4); Lymphocytes % (Auto) 26.5 % (13.4-35.0); Mean Corpuscular HGB Conc 33 % (32-34); Mean Corpuscular Volume 91 fl (84-94); Monocytes # (Auto) 0.4 K/mm3 (0.0-0.8); Monocytes % (Auto) 7.6 % (0.0-7.3); Platelet Count 187 K/mm3 (140-440); Red Cell Distribution Width 15.1 % (13.2-15.2)
[2018-11-04 09:08] LABS: INR 1.05 (0.87-1.13)
[2018-11-04 09:09] LABS: Partial Thromboplastin Time 29.8 Sec. (24.2-36.6)
[2018-11-04] MEDS ORDERED: KINEVAC IV ONE (09:25)
[2018-11-04 10:23] LABS: BUN/Creatinine Ratio 11; Blood Urea Nitrogen 10 mg/dL (9-20); Calcium 10.9 mg/dL (8.4-10.2); Hemolysis Index 12
[2018-11-04] MEDS ORDERED: LEVAQUIN 500MG/100ML 500 MG/100 ML BAG IV NR (11:00)
[2018-11-04] MEDS ORDERED: NACL 0.9% 500 ML IR ONE (11:49)
[2018-11-04] MEDS ORDERED: XYLOCAINE 2% INFILTRATI ONE (11:49)
[2018-11-04] MEDS ORDERED: VERSED ONE (11:52)
[2018-11-04] MEDS ORDERED: SUBLIMAZE ONE (11:52)
--- NOTE | 2018-11-04 11:53 | Cat Scan Report ---
CT ABDOMEN PELVIS WITHOUT CONTRAST: HISTORY: Right renal stone. COMPARISON: 03/13/18. TECHNIQUE: Helical CT in 1.25mm intervals without IV contrast. Sagittal and coronal reconstructions. FINDINGS: Lung bases: Normal. Liver: Normal. Biliary system: Normal. Pancreas: Normal. Spleen: Normal. Kidneys/ureters/bladder: Multiple bilateral renal cysts are unchanged in size and number. A 2.7 x 1.9 x 3.0 cm stone is present within the right renal pelvis. A 9 mm calyceal stone is identified at the inferior pole the right kidney. No left nephrolithiasis. A right ureteral stent appears in good position. There is no evidence for hydronephrosis. Adrenal glands: Normal. Aorta: Normal. Intestines: No evidence for focal inflammation or bowel obstruction. Mild sigmoid diverticulosis is noted. Appendix: Not confidently identified, correlate with surgical history. Pelvic viscera: The prostate gland is markedly enlarged measuring 9 cm in diameter. Ascites: None. Adenopathy: None. Musculoskeletal: Intact. Mild lumbar spondylosis. No fracture or suspicious bony lesion. IMPRESSION: Right nephrolithiasis as outlined above. Bilateral renal cysts, stable. Marked enlargement of the prostate gland. Mild sigmoid diverticulosis.
--- NOTE | 2018-11-04 12:20 | Operative Report ---
Operative Report Operative Report: Exam: Fluoroscopic guided placement of nephroureteral stent Clinical indication: Visual with a history of recurrent right kidney stones, access needed for laser lithotripsy Date: 11/04/2018 Procedure: Following an excellent action of the risks, benefits and alternatives; written informed consent was obtained. The patient was brought to the injury Suite and placed in prone position on the examination table. The patient's back and flank were prepped and draped in the usual sterile fashion. 1% lidocaine was used for anesthesia. Under fluoroscopic guidance using triangular angulation, a 15 cm 21-gauge needle was advanced into the kidney. The tip of the needle deflected the proximal pigtail of the indwelling ureteral stent. Contrast was gently injected through the needle to opacify the renal collecting system. The needle appears to puncture a posterior superior calyx. Contrast was then used to evaluate the collecting system and ureteropelvic junction. A large approximately 1-1/2 cm stone is present in the renal pelvis. A 0.018 guidewire was advanced through the needle into the proximal ureter. The needle was removed and a transition dilator placed. The 0.018 guidewire was exchanged for a 0.035 guidewire which was then advanced to the bladder. The transition dilator was removed and a 5 [place] pigtail catheter advanced over the guidewire into position the distal pigtail within the bladder. Contrast was injected to document appropriate positioning within the bladder. The guidewire was removed. The catheter was securely passed his skin surface using 2-0 Ethilon suture and a sterile dressing applied. The patient tolerated the procedure well. There were no immediate post pr ocedure complications. Conscious sedation was performed under the guidance of radiologic nursing. Continuous cardiopulmonary monitoring was utilized. Impression: Fluoroscopic guided placement of nephroureteral stent in anticipation of laser lithotripsy on Sunday.
[2018-11-04] MEDS ORDERED: NORCO 5/325 PO ONE (15:23)
[2018-11-05] MEDS ORDERED: NON-FORMULARY (Acetaminophen [Acetaminophen Er] 650 MG) PO PRN (01:44)
[2018-11-05] MEDS ORDERED: NORCO 10/325 PO PRN (01:44)
[2018-11-05] MEDS ORDERED: ZOFRAN ODT PO PRN (01:44)
--- NOTE | 2018-11-05 01:44 | History and Physical Report ---
History of Present Illness Date of examination: 11/04/18 Date of admission: 11/04/18 12:52 Chief complaint: S/p Fluoroscopic guided placement of nephroureteral stent in anticipation of laser lithotripsy on Sunday. History of present illness: S/p Fluoroscopic guided placement of nephroureteral stent in anticipation of laser lithotripsy on Sunday).Post procedure patient doing well.No fever or chills. Past History Past Medical History: other (Recurrent Kidney stones) Past Surgical History: Other (right NUS and laser lithotripsy) Social history: no significant social history Family history: no significant family history Medications and Allergies Allergies Allergy/AdvReac Type Severity Reaction Status Date / Time Penicillins Allergy Itching Verified 03/12/18 22:51 Home Medications Medication Instructions Recorded Confirmed Last Taken Type Acetaminophen [Acetaminophen ER] 650 mg PO PRN PRN 03/12/18 03/13/18 03/10/18 History HYDROcodone/APAP 10-325 [[place] 1 each PO Q6HR PRN #20 tablet 03/12/18 03/13/18 Unknown Rx 10-325 mg TAB] Ondansetron [Zofran ODT TAB] 4 mg PO PRN PRN 03/12/18 03/13/18 03/12/18 History oxyCODONE /ACETAMINOPHEN [Percocet 1 tab PO PRN PRN 03/12/18 03/13/18 03/12/18 History 5/325 mg] Active Meds: Active Medications Sodium Chloride (Nacl 0.9% 1000 Ml) 1,000 mls @ 42 mls/hr IV DIRECT TISH Review of Systems All systems: negative Genitourinary Male: flank pain (Rt Flank pain), kidney stones Exam - Constitutional Vitals: Temp Pulse Resp BP Pulse Ox 98.0 F 42 L 18 171/96 97 11/04/18 20:04 11/04/18 21:27 11/04/18 22:00 11/04/18 20:04 11/04/18 20:04 General appearance: Present: no acute distress, well-nourished - EENT Eyes: Present: PERRL ENT: hearing intact, clear oral mucosa - Neck Neck: Present: supple, normal ROM - Respiratory Respiratory effort: normal Respiratory: bilateral: CTA - Cardiovascular Heart Sounds: Present: S1 & S2. Absent: rub, click - Extremities Extremities: pulses symmetrical, No edema Peripheral Pulses: within normal limits - Abdominal General gastrointestinal: Present: soft, non-tender, non-distended, normal bowel sounds Male genitourinary: Present: normal - Integumentary Integumentary: Present: clear, warm, dry - Musculoskeletal Musculoskeletal: gait normal, strength equal bilaterally - Psychiatric Psychiatric: appropriate mood/affect, intact judgment & insight - Neurologic Neurologic: CNII-XII intact, moves all extremities - Allied Health Allied health notes reviewed: nursing, case management Results - Labs CBC & Chem 7: 11/04/18 08:50 11/04/18 10:00 Labs: Laboratory Last Values WBC 5.3 K/mm3 (4.5-11.0) 11/04/18 08:50 RBC 4.90 M/mm3 (3.65-5.03) 11/04/18 08:50 Hgb 14.8 gm/dl (11.8-15.2) 11/04/18 08:50 Hct 44.5 % (35.5-45.6) 11/04/18 08:50 MCV 91 fl (84-94) 11/04/18 08:50 MCH 30 pg (28-32) 11/04/18 08:50 MCHC 33 % (32-34) 11/04/18 08:50 RDW 15.1 % (13.2-15.2) 11/04/18 08:50 Plt Count 187 K/mm3 (140-440) 11/04/18 08:50 Lymph % (Auto) 26.5 % (13.4-35.0) 11/04/18 08:50 [place] % (Auto) 7.6 % (0.0-7.3) H 11/04/18 08:50 Eos % (Auto) 3.3 % (0.0-4.3) 11/04/18 08:50 Baso % (Auto) 0.3 % (0.0-1.8) 11/04/18 08:50 Lymph # 1.4 K/mm3 (1.2-5.4) 11/04/18 08:50 [place] # 0.4 K/mm3 (0.0-0.8) 11/04/18 08:50 Eos # 0.2 K/mm3 (0.0-0.4) 11/04/18 08:50 Baso # 0.0 K/mm3 (0.0-0.1) 11/04/18 08:50 Seg Neutrophils % 62.3 % (40.0-70.0) 11/04/18 08:50 Seg Neutrophils # 3.3 K/mm3 (1.8-7.7) 11/04/18 08:50 PT 14.1 Sec. (12.2-14.9) 11/04/18 08:50 INR 1.05 (0.87-1.13) 11/04/18 08:50 APTT 29.8 Sec. (24.2-36.6) 11/04/18 08:50 Sodium 140 mmol/L (137-145) 11/04/18 10:00 Potassium 4.4 mmol/L (3.6-5.0) 11/04/18 10:00 Chloride 109.4 mmol/L (98-107) H 11/04/18 10:00 Carbon Dioxide 22 mmol/L (22-30) 11/04/18 10:00 Anion Gap 13 mmol/L 11/04/18 10:00 BUN 10 mg/dL (9-20) 11/04/18 10:00 Creatinine 0.9 mg/dL (0.8-1.5) 11/04/18 10:00 Estimated GFR > 60 ml/min 11/04/18 10:00 BUN/Creatinine Ratio 11 % 11/04/18 10:00 Glucose 104 mg/dL (75-100) H 11/04/18 10:00 Calcium 10.9 mg/dL (8.4-10.2) H 11/04/18 10:00 - Imaging and Cardiology Imaging and Cardiology: CT Abdomen Kidneys/ureters/bladder: Multiple bilateral renal cysts are unchanged in size and number. A 2.7 x 1.9 x 3.0 cm stone is present within the right renal pelvis. A 9 mm calyceal stone is identified at the inferior pole the right kidney. No left nephrolithiasis. A right ureteral stent appears in good position. . IMPRESSION: Right nephrolithiasis as outlined above. Bilateral renal cysts, stable. Marked enlargement of the prostate gland. Mild sigmoid diverticulosis. Assessment and Plan Advance Directives: Yes (FC) VTE prophylaxis?: Chemical - Patient Problems (1) Acute right flank pain Current Visit: No Status: Acute Plan to address problem: Patient had Nephroureteral stent for Lithotripsy on 11/06/18 Patient admitted for observation and pain control Possible discharge in AM (2) Right kidney stone Current Visit: Yes Status: Chronic Plan to address problem: For Lithotripsy on sun (3) DVT prophylaxis Current Visit: Yes Status: Acute Plan to address problem: On Lovenox
[2018-11-05] MEDS ORDERED: SODIUM CHLORIDE FLUSH SYRINGE 10 ML IV PRN (01:45)
[2018-11-05] MEDS ORDERED: TYLENOL PO PRN ×2 (01:45→01:50)
[2018-11-05] MEDS ORDERED: ZOFRAN IV PRN (01:45)
[2018-11-05] MEDS ORDERED: DILAUDID IV PRN (01:45)
[2018-11-05 08:50] VITALS: BP 126/70
[2018-11-05] MEDS ORDERED: SODIUM CHLORIDE FLUSH SYRINGE 10 ML IV SCH (10:00)
[2018-11-05] MEDS ORDERED: PEPCID IV SCH (10:00)
[2018-11-05] MEDS ORDERED: LOVENOX SUB-Q SCH (10:00)
--- NOTE | 2018-11-05 10:26 | Progress Note ---
Assessment and Plan Assessment and plan: Patient is a 68 year old male with hx of neprolithasis presented for S/p Fluoroscopic guided placement of nephroureteral stent in anticipation of laser lithotripsy on Sunday11/06/18). Post procedure patient doing well.No fever or chills. - Patient Problems (1) Acute right flank pain Current Visit: No Status: Acute Plan to address problem: Patient had Nephroureteral stent for Lithotripsy on 11/06/18 Patient admitted for observation and pain control Possible discharge in AM (2) Right kidney stone Current Visit: Yes Status: Chronic Plan to address problem: For Lithotripsy on sun (3) DVT prophylaxis Current Visit: Yes Status: Acute Plan to address problem: On [facility] Hospitalist Physical - Constitutional Vitals: Temp Pulse Resp BP Pulse Ox 98.0 F 52 L 18 126/70 95 11/05/18 07:29 11/05/18 10:00 11/05/18 10:00 11/05/18 07:29 11/05/18 07:29 General appearance: Present: no acute distress, well-nourished Results - Labs CBC & Chem 7: 11/04/18 08:50 11/04/18 10:00 Labs: Laboratory Last Values WBC 5.3 K/mm3 (4.5-11.0) 11/04/18 08:50 RBC 4.90 M/mm3 (3.65-5.03) 11/04/18 08:50 Hgb 14.8 gm/dl (11.8-15.2) 11/04/18 08:50 Hct 44.5 % (35.5-45.6) 11/04/18 08:50 MCV 91 fl (84-94) 11/04/18 08:50 MCH 30 pg (28-32) 11/04/18 08:50 MCHC 33 % (32-34) 11/04/18 08:50 RDW 15.1 % (13.2-15.2) 11/04/18 08:50 Plt Count 187 K/mm3 (140-440) 11/04/18 08:50 Lymph % (Auto) 26.5 % (13.4-35.0) 11/04/18 08:50 [place] % (Auto) 7.6 % (0.0-7.3) H 11/04/18 08:50 Eos % (Auto) 3.3 % (0.0-4.3) 11/04/18 08:50 Baso % (Auto) 0.3 % (0.0-1.8) 11/04/18 08:50 Lymph # 1.4 K/mm3 (1.2-5.4) 11/04/18 08:50 [place] # 0.4 K/mm3 (0.0-0.8) 11/04/18 08:50 Eos # 0.2 K/mm3 (0.0-0.4) 11/04/18 08:50 Baso # 0.0 K/mm3 (0.0-0.1) 11/04/18 08:50 Seg Neutrophils % 62.3 % (40.0-70.0) 11/04/18 08:50 Seg Neutrophils # 3.3 K/mm3 (1.8-7.7) 11/04/18 08:50 PT 14.1 Sec. (12.2-14.9) 11/04/18 08:50 INR 1.05 (0.87-1.13) 11/04/18 08:50 APTT 29.8 Sec. (24.2-36.6) 11/04/18 08:50 Sodium 140 mmol/L (137-145) 11/04/18 10:00 Potassium 4.4 mmol/L (3.6-5.0) 11/04/18 10:00 Chloride 109.4 mmol/L (98-107) H 11/04/18 10:00 Carbon Dioxide 22 mmol/L (22-30) 11/04/18 10:00 Anion Gap 13 mmol/L 11/04/18 10:00 BUN 10 mg/dL (9-20) 11/04/18 10:00 Creatinine 0.9 mg/dL (0.8-1.5) 11/04/18 10:00 Estimated GFR > 60 ml/min 11/04/18 10:00 BUN/Creatinine Ratio 11 % 11/04/18 10:00 Glucose 104 mg/dL (75-100) H 11/04/18 10:00 Calcium 10.9 mg/dL (8.4-10.2) H 11/04/18 10:00
--- NOTE | 2018-11-05 10:32 | Discharge Summary ---
Providers - Providers Date of Admission: 11/04/18 12:52 Attending physician: PAWAN CHOW MD Primary care physician: RADHA DOWLING Hospitalization Reason for admission: Urological procedure Condition: Stable Hospital course: Patient is a 68 year old male with hx of neprolithasis presented for S/p Fluoroscopic guided placement of nephroureteral stent in anticipation of laser lithotripsy on Sunday11/06/18). Post procedure patient doing well. HE was admitted for obseravation overnight and this morning is doing well with no pain No fever or chills. (1) Acute right flank pain (2) Right kidney stone Disposition: TO HOME OR SELFCARE Time spent for discharge: 35 mins Core Measure Documentation - Palliative Care Palliative Care/ Comfort Measures: Not Applicable - Core Measures Any of the following diagnoses?: none Exam - Constitutional Vitals: Temp Pulse Resp BP Pulse Ox 98.0 F 52 L 18 126/70 95 11/05/18 07:29 11/05/18 10:00 11/05/18 10:00 11/05/18 07:29 11/05/18 07:29 General appearance: Present: no acute distress, well-nourished - EENT Eyes: Present: PERRL, EOM intact ENT: hearing intact, clear oral mucosa - Neck Neck: Present: supple, normal ROM - Respiratory Respiratory effort: normal Respiratory: bilateral: CTA - Cardiovascular Rhythm: regular Heart Sounds: Present: S1 & S2. Absent: systolic murmur, diastolic murmur - Extremities Extremities: no ischemia, pulses intact, No edema, Full ROM Peripheral Pulses: within normal limits - Abdominal General gastrointestinal: Present: soft, non-tender, non-distended, normal bowel sounds - Integumentary Integumentary: Present: clear, warm, dry - Musculoskeletal Musculoskeletal: strength equal bilaterally - Psychiatric Psychiatric: appropriate mood/affect, intact judgment & insight - Neurologic Neurologic: CNII-XII intact Plan Activity: advance as tolerated, fall precautions Diet: low fat Special Instructions: record daily weights Follow up with: RADHA DOWLING MD [Primary Care Provider] - 7 Days
== END 2018-11-05 13:50 | disposition home or self-care (01) | DRG 694 ==
LOC: CATHLABREC 07:21 → 2B-ACE 12:52 → OBSVTOIN 11-05 01:45
PROVIDERS: ADMIT Internal Medicine; ATTEND Internal Medicine
PROC: 0T763DZ Dilation of Right Ureter with Intraluminal Device, Percutaneous Approach (ICD-10-PCS; principal; 2018-11-04)
PROC: BT161ZZ Fluoroscopy of Right Ureter using Low Osmolar Contrast (ICD-10-PCS; 2018-11-04)
PROC: BT46ZZZ Ultrasonography of Right Ureter (ICD-10-PCS; 2018-11-04)
DX: N20.0 Calculus of kidney (principal); Z88.0 Allergy status to penicillin; Z79.899 Other long term (current) drug therapy; Z87.442 Personal history of urinary calculi
CPT/HCPCS: 36415; 50433; 74176; 76937; 80048; 85025; 85610; 85730; G0378; C1751; C1769; J1650; J1956; J2250; J2805; J3010; J7030; Q9967

== ENCOUNTER 2018-11-06 10:11 | Observation (INO) | payer BC, MEDICARE ==
--- NOTE | 2018-11-04 12:52 | History and Physical Report ---
History of Present Illness Date of examination: 11/04/18 Medications and Allergies Allergies Allergy/AdvReac Type Severity Reaction Status Date / Time Penicillins Allergy Itching Verified 03/12/18 22:51 Home Medications Medication Instructions Recorded Confirmed Last Taken Type No Known Home Medications [No 11/05/18 11/05/18 Unknown History Reported Home Medications]
[~2018-11-06 10:11] MED LIST changes: -ANCEF/STERILE WATER 2 GM/20 ML 2 GM/20 ML SYRINGE IV NR; +DILAUDID IV PRN; +SODIUM CHLORIDE FLUSH SYRINGE 10 ML IV PRN; +TYLENOL PO PRN; +ZOFRAN IV PRN
[2018-11-06] MEDS ORDERED: VERSED ONE (11:22)
[2018-11-06] MEDS ORDERED: SUBLIMAZE ONE (11:33)
[2018-11-06] MEDS ORDERED: DIPRIVAN 10 MG/ML IV ONE (11:34)
[2018-11-06] MEDS ORDERED: QUELICIN ONE (11:34)
[2018-11-06] MEDS ORDERED: XYLOCAINE MPF 2% ONE (11:39)
[2018-11-06] MEDS ORDERED: ZEMURON IV ONE (11:39)
[2018-11-06] MEDS ORDERED: MINERAL OIL TOPICAL LIGHT TP ONE ×2 (12:08→13:45)
[2018-11-06] MEDS ORDERED: NACL 0.9% 500 ML 500 ML IV NR (12:26)
[2018-11-06] MEDS ORDERED: LEVAQUIN 500MG/100ML 500 MG/100 ML BAG IV ONE (12:29)
[2018-11-06] MEDS ORDERED: GENTAMICIN/NS 80 MG/100 ML 100 ML IV NR (12:31)
[2018-11-06] MEDS ORDERED: GENTAMICIN/NS 80 MG/100 ML 100 ML IV ONE (12:32)
[2018-11-06] MEDS ORDERED: LEVAQUIN 500MG/100ML 500 MG/100 ML BAG IV NR (13:00)
[2018-11-06] MEDS ORDERED: DECADRON ONE (13:21)
[2018-11-06] MEDS ORDERED: ZOFRAN ONE (13:22)
[2018-11-06] MEDS ORDERED: NEO SYNEPHRINE ONE (13:30)
[2018-11-06] MEDS ORDERED: NACL 0.9% IR ONE (13:41)
[2018-11-06] MEDS ORDERED: DILAUDID ONE (13:47)
[2018-11-06] MEDS ORDERED: OMNIPAQUE (300 MG) IR ONE (13:49)
[2018-11-06] MEDS ORDERED: ZOFRAN IV PRN (15:48)
[2018-11-06] MEDS ORDERED: DILAUDID IV PRN (15:48)
[2018-11-06] MEDS ORDERED: AMBIEN PO PRN (16:05)
[2018-11-06] MEDS ORDERED: TYLENOL PO PRN (16:05)
[2018-11-06] MEDS ORDERED: PERCOCET 5/325 PO PRN (16:05)
[2018-11-06] MEDS ORDERED: ZOFRAN ODT PO PRN (16:05)
--- NOTE | 2018-11-06 16:05 | Post Operative Note ---
Date of procedure: 11/06/18 Pre-op diagnosis: huge r renal stone Post-op diagnosis: same Findings: as above Procedure: R perc 4 cm stone Anesthesia: GETA Surgeon: KRISSY AVITIA Estimated blood loss: minimal Pathology: list (stones) Specimen disposition: to lab Condition: stable Disposition: PACU
[2018-11-06] MEDS ORDERED: ROBINUL ONE (16:11)
[2018-11-06] MEDS ORDERED: ROBINUL IV ONE (16:12)
[2018-11-06] MEDS ORDERED: D5W/0.45% NACL/KCL 20 MEQ 20 MEQ/1,000 ML BAG IV SCH (17:00)
[2018-11-06] MEDS ORDERED: ANCEF/NS 1 GM/50 ML 1 GM/50 ML BAG IV SCH (17:00)
--- NOTE | 2018-11-06 17:12 | Operative Report ---
PREOPERATIVE DIAGNOSIS: Recurrent huge 4 cm right renal stone. POSTOPERATIVE DIAGNOSIS: Recurrent huge 4 cm right renal stone. PROCEDURE: Right percutaneous nephrolithotomy. SURGEON: Juanito Iverson M.D. ANESTHESIA: General. FINDINGS: This is a gentleman who had a stone about 6 months ago removed and he now has a recurrent stone, right UPJ. This is huge, it is a 4 cm, looks like an egg. He now presents for treatment. DESCRIPTION OF PROCEDURE: The patient was brought to the operating room and placed on the operating table. Following induction of anesthesia, Quevedo catheter was placed. He was placed in the prone position, prepped and draped in usual sterile fashion. Percutaneous nephrostomy was placed on Sunday. A rigid Amplatz wire was placed down in the bladder through the nephroureteral stent. A small incision was made along the wire and this was dilated with a hemostat. A safety wire was placed by inserting the SNAKE and the safety guidewire insertion site. This was hard to get passed the stone because there was also a double-J stent. We took that out and we used a double lumen ureteral catheter and a safety wire was placed in the bladder. At this point, we started manual dilation, but it was very tight, so we used the 30-Korean balloon. We could not get the sheath over the balloon, so we took the balloon out and placed a 28-sheath with using the Amplatz unit and the SNAKE. At this point, flexible ureteroscopy showed lots of clots, which were removed with the flexible and rigid nephroscope. The stone was then well seen with minimal torquing of the scope and using the ultrasound lithotripter by Karen, the stone was completely removed and disintegrated. Fragments were sent to pathology for analysis. The double-J stent moved proximally and was removed. We did not replace a double-J stent. A nephrostomy tube was placed in the kidney. This was 22-Korean and secured with silk. The patient tolerated the procedure well and was in excellent position, brought to recovery in stable condition. JOB# [id number] LIOR/MICHAEL
--- NOTE | 2018-11-06 18:08 | Anesthesia Consultation ---
Anesthesia Consult and Med Hx Date of service: 11/06/18 - Airway Anesthetic Teeth Evaluation: Poor ROM Head & Neck: Adequate Mental/Hyoid Distance: Adequate Mallampati Class: Class III Intubation Access Assessment: Possibly Difficult - Pulmonary Exam CTA: Yes - Cardiac Exam Cardiac Exam: RRR - Pre-Operative Health Status ASA Pre-Surgery Classification: ASA3 Proposed Anesthetic Plan: General - Central Nervous System CVA: No - Other Systems Hx Cancer: No
--- NOTE | 2018-11-06 18:08 | Post Anesthesia Evaluation ---
- Post Anesthesia Evaluation Patient Participated: Yes Airway Patent: Yes Stable Respiratory Function: Yes Nausea/Vomiting: No Temp > 96.8F: Yes Pain Manageable: Yes Adequeate Hydration: Yes Anesthesia Complications: No
--- NOTE | 2018-11-06 18:08 | Anesthesia Day of Surgery ---
Anesthesia Day of Surgery - Day of Surgery Patient Examined: Yes Patient H&P Reviewed: Yes Patient is NPO: Yes
[2018-11-06 18:53] VITALS: BP 134/76
--- NOTE | 2018-11-06 18:56 | Consultation ---
History of Present Illness - Reason for Consult Consult date: 11/06/18 Requesting physician: KRISSY AVITIA - History of Present Illness 68 YO Male with Obesity Hypoventilation, Nephrolithiasis. Consult placed by Dr. Avitia for medical management. Pt seen and evaluated upon arrival to his room. Pt acknowledges pain is 2/10, and controlled with currentl pain medication regimen. Pt denies fever, chills, CP, Palpitations, NVD, productive cough, skin rash, shortness of breath, or recent ill contacts. No reported nursing events. Past History Past Medical History: other (Obesity, Nephrolithiasis.) Past Surgical History: Other (Kidney stone) Social history: . denies: smoking, alcohol abuse, prescription drug abuse Family history: hypertension Medications and Allergies Allergies Allergy/AdvReac Type Severity Reaction Status Date / Time Penicillins Allergy Itching Verified 03/12/18 22:51 Home Medications Medication Instructions Recorded Confirmed Last Taken Type No Known Home Medications [No 11/05/18 11/05/18 Unknown History Reported Home Medications] Active Meds: Active Medications Acetaminophen (Tylenol) 650 mg PO Q4H PRN PRN Reason: Pain MILD(1-3)/Fever >100.5/COOK Docusate Sodium (Colace) 100 mg PO BID TISH Famotidine (Pepcid) 20 mg PO BID TISH Hydromorphone HCl (Dilaudid) 1 mg IV Q3H PRN PRN Reason: Pain, Moderate (4-6) Hydromorphone HCl (Dilaudid) 0.5 mg IV Q10MIN PRN PRN Reason: Pain , Severe (7-10) Stop: 11/06/18 23:59 Last Admin: 11/06/18 15:50 Dose: 0.5 mg Documented by: Sodium Chloride (Nacl 0.9% 1000 Ml) 1,000 mls @ 100 mls/hr IV DIRECT TISH Last Admin: 11/06/18 11:20 Dose: 100 mls/hr Documented by: Sodium Chloride (Nacl 0.9% 500 Ml) 500 mls @ 0 mls/hr IV ONCE NR Stop: 11/06/18 23:59 Levofloxacin/Dextrose (Levaquin 500mg/100ml) 500 mg in 100 mls @ 100 mls/hr IV PREOP NR; Protocol Stop: 11/06/18 23:59 Gentamicin Sulfate/Sodium Chloride (Garamycin/Ns 80 Mg/100 Ml) 100 mls @ 200 mls/hr IV ONCE NR Stop: 11/06/18 23:59 Cefazolin Sodium (Ancef/Ns 1 Gm/50 Ml) 1 gm in 50 mls @ 100 mls/hr IV Q8H TISH; Protocol Stop: 11/07/18 01:29 Potassium Chloride/Dextrose/Sod Cl (D5w/0.45% Nacl/Kcl 20 Meq) 20 meq in 1,000 mls @ 125 mls/hr IV DIRECT TISH Ondansetron HCl (Zofran) 4 mg IV Q8H PRN PRN Reason: Nausea And Vomiting Ondansetron HCl (Zofran) 4 mg IV ONCE PRN PRN Reason: Nausea And Vomiting Ondansetron HCl (Zofran Odt) 4 mg PO Q8H PRN PRN Reason: Nausea And Vomiting Oxycodone/Acetaminophen (Percocet 5/325) 2 tab PO Q6H PRN PRN Reason: Pain, Moderate (4-6) Sodium Chloride (Sodium Chloride Flush Syringe 10 Ml) 10 ml IV BID TISH Sodium Chloride (Sodium Chloride Flush Syringe 10 Ml) 10 ml IV PRN PRN PRN Reason: LINE FLUSH Zolpidem Tartrate (Ambien) 5 mg PO QHS PRN PRN Reason: Sleep Review of Systems Constitutional: no weight loss, no weight gain, no fever, no chills Ears, nose, mouth and throat: no ear pain, no ear discharge, no tinnitis, no decreased hearing Cardiovascular: no chest pain, no orthopnea, no palpitations, no rapid/irregular heart beat, no edema, no syncope Respiratory: no cough, no cough with sputum, no excessive sputum, no hemoptysis, no shortness of breath Gastrointestinal: no abdominal pain, no nausea, no diarrhea Genitourinary Male: no dysuria, no nocturia, no incontinence Rectal: no pain, no incontinence, no bleeding Musculoskeletal: no neck stiffness, no neck pain, no shooting arm pain, no arm numbness/tingling Integumentary: no rash, no pruritis, no redness, no sores, no wounds Neurological: no paralysis, no weakness, no parathesias, no numbness, no tingling Psychiatric: no anxiety, no memory loss, no change in sleep habits, no sleep disturbances, no insomnia Endocrine: no cold intolerance, no heat intolerance, no polyphagia Hematologic/Lymphatic: no easy bruising, no easy bleeding, no lymphadenopathy, no lymphedema Allergic/Immunologic: no urticaria, no allergic rhinitis, no wheezing, no anaphylaxis, no angioedema Exam - Constitutional Vitals: Temp Pulse Resp BP Pulse Ox 97.4 F L 58 L 20 134/76 98 11/06/18 16:30 11/06/18 18:45 11/06/18 18:45 11/06/18 18:45 11/06/18 18:45 General appearance: Present: mild distress, obese - EENT Eyes: Present: PERRL ENT: hearing intact, clear oral mucosa - Neck Neck: Present: supple, normal ROM - Respiratory Respiratory effort: normal Respiratory: bilateral: CTA - Cardiovascular Heart Sounds: Present: S1 & S2. Absent: rub, click - Extremities Extremities: pulses symmetrical, No edema Peripheral Pulses: within normal limits - Abdominal General gastrointestinal: Present: soft, non-tender, non-distended, normal bowel sounds Male genitourinary: Present: normal - Integumentary Integumentary: Present: clear, warm, dry - Musculoskeletal Musculoskeletal: gait normal, strength equal bilaterally - Psychiatric Psychiatric: appropriate mood/affect, intact judgment & insight - Neurologic Neurologic: CNII-XII intact, moves all extremities Results - Labs Labs: Abnormal lab results 11/06/18 Range/Units 11:10 Crossmatch See Detail Assessment and Plan - Patient Problems (1) Obesity hypoventilation syndrome Current Visit: Yes Status: Acute Plan to address problem: Early ambulation, pulmonary toilet, incentive spirometry, supplemental oxygen, nebulizer therapy prn. (2) DVT prophylaxis Current Visit: No Status: Acute Plan to address problem: SCD to BLE while in bed.
[2018-11-06] MEDS: COLACE PO SCH (21:49)
[2018-11-06] MEDS: PEPCID PO SCH ×2 (21:49→21:50)
[2018-11-06] MEDS: SODIUM CHLORIDE FLUSH SYRINGE 10 ML IV SCH (21:50)
[2018-11-07] MEDS: ANCEF/NS 1 GM/50 ML 1 GM/50 ML BAG IV SCH ×2 (01:30→10:08)
--- NOTE | 2018-11-07 08:11 | Fluoroscopy Report ---
FLUOROSCOPY NEPHROSTOGRAM EXISTING RIGHT FLUOROSCOPY URETER/NEPHROSTOMY DILATATION RIGHT History: Right kidney stone. Findings: Fluoroscopy was provided by radiology during right ureteral stent removal and percutaneous placement of a right nephrostomy tube. 11 fluoroscopic images were captured. There appeared to be a large stone in the right renal pelvis which wasn't removed. Please correlate with the procedural report by Dr. Iverson. Impression: Successful removal of a right renal stone and right nephrostomy placement.
[2018-11-07] MEDS: COLACE PO SCH (09:50)
[2018-11-07] MEDS: PEPCID PO SCH (09:51)
[2018-11-07] MEDS: SODIUM CHLORIDE FLUSH SYRINGE 10 ML IV SCH (09:52)
--- NOTE | 2018-11-07 09:59 | Progress Note ---
Assessment and Plan doing well home with nephrostomy Subjective Date of service: 11/07/18 Principal diagnosis: huge stones Objective - Constitutional Vitals: Vital Signs - 12hr 11/06/18 11/07/18 11/07/18 22:00 00:00 04:00 Pulse Rate 56 L Pulse Rate [ 68 68 From Monitor] Respiratory 24 24 Rate O2 Sat by Pulse 94 94 Oximetry 11/07/18 08:00 Pulse Rate Pulse Rate [ 59 L From Monitor] Respiratory 20 Rate O2 Sat by Pulse 96 Oximetry General appearance: Present: no acute distress - Neck Neck: supple - Respiratory Respiratory effort: normal Extremities: no ischemia - Gastrointestinal General gastrointestinal: Present: soft, non-tender - Labs Labs: Abnormal lab results 11/06/18 Range/Units 11:10 Crossmatch See Detail Medications & Allergies - Medications Allergies/Adverse Reactions: Allergies Penicillins Allergy (Verified 03/12/18 22:51) Itching Home Medications: Home Medications Medication Instructions Recorded Confirmed Last Taken Type No Known Home Medications [No 11/05/18 11/05/18 Unknown History Reported Home Medications] Active Medications: Generic Name Dose Route Start Last Admin Trade Name Freq PRN Reason Stop Dose Admin Acetaminophen 650 mg 11/04/18 12:52 Tylenol PO Q4H PRN Pain MILD(1-3)/Fever >100.5/COOK Docusate Sodium 100 mg 11/06/18 22:00 11/07/18 09:50 Colace PO 100 mg BID TISH Administration Famotidine 20 mg 11/04/18 22:00 11/07/18 09:51 Pepcid PO 20 mg BID TISH Administration Hydromorphone HCl 1 mg 11/04/18 12:52 Dilaudid IV Q3H PRN Pain, Moderate (4-6) Sodium Chloride 1,000 mls @ 100 mls/hr 11/04/18 13:00 11/06/18 11:20 Nacl 0.9% 1000 Ml IV 100 mls/hr DIRECT TISH Administration Potassium Chloride/Dextrose/Sod Cl 20 meq in 1,000 mls @ 125 mls/hr 11/06/18 17:00 D5w/0.45% Nacl/Kcl 20 Meq IV DIRECT TISH Cefazolin Sodium 1 gm in 50 mls @ 100 mls/hr 11/07/18 01:30 11/07/18 01:30 Ancef/Ns 1 Gm/50 Ml IV 11/07/18 09:59 100 mls/hr Q8H TISH Administration Protocol Ondansetron HCl 4 mg 11/04/18 12:52 Zofran IV Q8H PRN Nausea And Vomiting Ondansetron HCl 4 mg 11/06/18 15:48 Zofran IV ONCE PRN Nausea And Vomiting Ondansetron HCl 4 mg 11/06/18 16:05 Zofran Odt PO Q8H PRN Nausea And Vomiting Oxycodone/Acetaminophen 2 tab 11/06/18 16:05 Percocet 5/325 PO Q6H PRN Pain, Moderate (4-6) Sodium Chloride 10 ml 11/04/18 22:00 11/07/18 09:52 Sodium Chloride Flush Syringe 10 Ml IV 10 ml BID TISH Administration Sodium Chloride 10 ml 11/04/18 12:52 Sodium Chloride Flush Syringe 10 Ml IV PRN PRN LINE FLUSH Zolpidem Tartrate 5 mg 11/06/18 16:05 Ambien PO QHS PRN Sleep
--- NOTE | 2018-11-07 10:01 | Discharge Summary ---
Short Stay Discharge Plan Activity: other (no strain ing ) Weight Bearing Status: Full Weight Bearing Diet: low fat, low cholesterol, low salt Wound: keep clean and dry, change dressing Special Instructions: other (neph tube care ) Durable Medical Equipment Needed Upon Discharge: other (nephrostomy tube ) Follow up with: RADHA DOWLING MD [Primary Care Provider] - 7 Days KRISSY AVITIA MD [Staff Physician] - 7 Days
--- NOTE | 2018-11-07 14:38 | Progress Note ---
Assessment and Plan Assessment and plan: 68 YO Male with Obesity Hypoventilation, Nephrolithiasis. Consult placed by Dr. Iverson for medical management. Pt seen and evaluated upon arrival to his room. Pt acknowledges pain is 2/10, and controlled with currentl pain medication regimen. Pt denies fever, chills, CP, Palpitations, NVD, productive cough, skin rash, shortness of breath, or recent ill contacts. No reported nursing events. (1) Obesity hypoventilation syndrome (2) nephrolithiasis Plan Patient demonstrates clinical stability of this point. Electrolytes are stable. I agree with discharge plan. Continue home medications and follow-up appointments as recommended. History Interval history: Patient seen and examined. he is in no acute distress resting comfortably at this time. Hospitalist Physical - Physical exam Narrative exam: VITAL SIGNS: Reviewed. GENERAL: The patient appeared well nourished and normally developed. Vital signs as documented. HEAD: No signs of head trauma. EYES: Pupils are equal. Extraocular motions intact. EARS: Hearing grossly intact. MOUTH: Oropharynx is normal. NECK: No adenopathy, no JVD. CHEST: Chest with clear breath sounds bilaterally. No wheezes, rales, or rhonchi. CARDIAC: Regular rate and rhythm. S1 and S2, without murmurs, gallops, or rubs. VASCULAR: No Edema. Peripheral pulses normal and equal in all extremities. ABDOMEN: Soft, without detectable tenderness. No sign of distention. No rebound or guarding, and no masses palpated. Bowel Sounds normal. MUSCULOSKELETAL: Good range of motion of all major joints. Extremities without clubbing, cyanosis or edema. NEUROLOGIC EXAM: Alert and oriented x 3. No focal sensory or strength deficits. Speech normal. Follows commands. PSYCHIATRIC: Mood normal. SKIN: No rash or lesions. Nephrostomy tube noted - Constitutional Vitals: Temp Pulse Resp BP Pulse Ox 97.4 F L 59 L 20 134/76 96 11/06/18 16:30 11/07/18 10:00 11/07/18 08:00 11/06/18 18:45 11/07/18 08:00 General appearance: Present: no acute distress Results - Labs Labs: Laboratory Last Values Blood Type A POSITIVE 11/06/18 11:10 Antibody Screen Negative 11/06/18 11:10 Crossmatch See Detail 11/06/18 11:10 Nutrition/Malnutrition Assess - Dietary Evaluation Nutrition/Malnutrition Findings: Nutrition Notes Start: 11/07/18 12:56 Freq: Status: Discharge Protocol: Document 11/07/18 12:56 CT (Rec: 11/07/18 13:50 CT [id number]) Co-Sign 11/07/18 12:56 RM Nutrition Notes 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 Height 6 ft 3 in Weight 117.93 kg [place] Body Weight (lbs) 196.0 BMI 32.5 Subjective/Other Information RD screen for skin risk. Eddie 17. Pt eating 100% of meals. Burn Absent Trauma Absent Nutrition Intervention Revisit per MD consult or patient Sign Off request:
== END 2018-11-07 12:00 | disposition home or self-care (01) ==
LOC: OR 10:11 → IMCU 16:05
PROVIDERS: ADMIT Urology; ATTEND Urology
DX: N20.0 Calculus of kidney (principal); E66.2 Morbid (severe) obesity with alveolar hypoventilation
CPT/HCPCS: 36415; 50081; 50431; 74485; 82365; 86850; 86900; 86901; 86920; 96365; 96366; 96375; A4217; C1726; C1769; G0378; J0330; J0690; J1100; J1170; J1580; J1956; J2250; J2370; J2405; J2704; J3010; J7030; Q9967

== ENCOUNTER 2018-11-15 08:52 | Outpatient (CLI) | payer BC, MEDICARE ==
--- NOTE | 2018-11-15 11:02 | Fluoroscopy Report ---
FLUOROSCOPY NEPHROSTOGRAM EXISTING RIGHT History: Kidney stones. Findings: Informed consent was obtained. Sterile technique was utilized. 39 fluoroscopic images were captured during this exam. Water soluble contrast agent was injected through the right nephrostomy tube. The right nephrostomy tube appears to communicate with a superior calyx in the right kidney. There is normal opacification of the right inferior calyces, renal pelvis and right ureter. No filling defect consistent with a stone or stricture is identified. Contrast is identified entering the bladder at the right UVJ. Impression: Normal right nephrostogram. No filling defect, stricture or abnormal dilatation is detected.
== END 2018-11-15 08:53 | disposition home or self-care (01) ==
LOC: FLUORO 08:52
PROVIDERS: ATTEND Urology
DX: N20.0 Calculus of kidney (principal); Z87.891 Personal history of nicotine dependence
CPT/HCPCS: 50431; Q9967

== ENCOUNTER 2018-11-20 10:00 | Day surgery (SDC) | payer BC, MEDICARE ==
[~2018-11-20 10:00] MED LIST changes: -DILAUDID IV PRN; -SODIUM CHLORIDE FLUSH SYRINGE 10 ML IV PRN; -TYLENOL PO PRN; +VANCOMYCIN/NS 1 GM/250 ML 1 GM/250 ML BAG IV NR; -ZOFRAN IV PRN
--- NOTE | 2018-11-20 10:39 | Short Stay Summary ---
Short Stay Documentation Date of service: 11/20/18 - History Principal diagnosis: right kidney stones Past Medical History: other (kidney stones) Past Surgical History: Other (right laser lithotripsy X 2) Social history: no significant social history - Allergies and Medications Current Medications: Allergies Penicillins Allergy (Verified 03/12/18 22:51) Itching Home Medications Medication Instructions Recorded Confirmed Last Taken Type No Known Home Medications [No 11/05/18 11/05/18 Unknown History Reported Home Medications] Active Medications Sodium Chloride (Nacl 0.9% 500 Ml) 500 mls @ 50 mls/hr IV DIRECT TISH Levofloxacin/Dextrose (Levaquin 500mg/100ml) 500 mg in 100 mls @ 100 mls/hr IV PREOP NR; Protocol Stop: 11/20/18 23:00 - Physical exam General appearance: no acute distress Integumentary: no rash, no growths HEENT: Atraumatic Lungs: Normal air movement Breasts: deferred Heart: Regular rate Gastrointestinal: normal Male Genitourinary: deferred Female Genitourinary: deferred Rectal Exam: deferred Extremities: Full ROM Neurological: Normal gait, Normal speech - Brief post op/procedure progress note Date of procedure: 11/20/18 Pre-op diagnosis: right kidney stones Post-op diagnosis: same Procedure: right ureteral stent placement, nephrostogram, ureteral stent placement Anesthesia: local Surgeon: MADDY MARIE Estimated blood loss: none Pathology: none Condition: stable - Disposition Condition at discharge: Good Disposition: DC-01 TO HOME OR SELFCARE Short Stay Discharge Plan Activity: advance as tolerated Weight Bearing Status: Weight Bear as Tolerated Diet: regular Wound: keep clean and dry, per your surgeon's advice Follow up with: RADHA DOWLING MD [Primary Care Provider] - 7 Days
[2018-11-20 10:54] LABS: Hemoglobin 14.5 gm/dl (11.8-15.2); Mean Corpuscular HGB Conc 34 % (32-34); Mean Corpuscular Volume 90 fl (84-94); Platelet Count 259 K/mm3 (140-440); Red Blood Count 4.77 M/mm3 (3.65-5.03); Red Cell Distribution Width 14.6 % (13.2-15.2)
[2018-11-20 11:05] LABS: INR 1.01 (0.87-1.13)
[2018-11-20 11:06] LABS: Partial Thromboplastin Time 33.2 Sec. (24.2-36.6)
[2018-11-20 11:11] LABS: BUN/Creatinine Ratio 13; Blood Urea Nitrogen 10 mg/dL (9-20); Calcium 11.2 mg/dL (8.4-10.2); Hemolysis Index 113
[2018-11-20] MEDS: LEVAQUIN 500MG/100ML 500 MG/100 ML BAG IV NR ×2 (12:32→13:25)
[2018-11-20] MEDS: NACL 0.9% 500 ML 500 ML IV SCH ×2 (12:51→13:20)
[2018-11-20] MEDS ORDERED: VERSED ONE (13:05)
[2018-11-20] MEDS ORDERED: SUBLIMAZE ONE (13:05)
[2018-11-20] MEDS ORDERED: NACL 0.9% 500 ML IR ONE (13:06)
[2018-11-20] MEDS ORDERED: XYLOCAINE 2% INFILTRATI ONE (13:06)
[2018-11-20] MEDS ORDERED: BENADRYL ONE (13:20)
--- NOTE | 2018-11-20 13:49 | Operative Report ---
Operative Report Operative Report: Exam: Nephrostogram through indwelling nephrostomy tube, fluoroscopically guided placement of ureteral stent, removal of indwelling nephrostomy tube Clinical indication: Patient with a history of right renal stones status post laser lithotripsy Date: 11/20/2018 Procedure: Following an explanation of the risks, benefits and alternatives; written informed consent was obtained. The patient was brought to the angiographic suite and placed in prone position on the examination table. The patient's right back and indwelling nephrostomy tube were prepped and draped in the usual sterile fashion. 1% lidocaine was used for anesthesia at the catheter exit site and along the catheter track. Contrast was injected through the indwelling nephrostomy tube. This demonstrates decompression of the kidney with no retained stones. There is prompt transit of contrast into the proximal ureter. A 0.035 guidewire was advanced through the indwelling nephrostomy tube and advanced to the distal ureter. The sutures were cut and the indwelling nephrostomy tube removed intact. An 8 Belgian sheath was placed over the guidewire and advanced into the proximal ureter. The trocar was removed and a 4 Belgian vertebral catheter was advanced over the guidewire. Together the guidewire and catheter were manipulated into the bladder. The guidewire was removed and contrast injected to document appropriate positioning within the bladder. The guidewire was then reinserted and coiled within the bladder. The vertebral catheter was removed. Contrast was then injected to the sheath to demonstrate appropriate positioning of the renal pelvis. The sheath was removed and a 7 Belgian by 26 cm ureteral stent was advanced over the guidewire under fluoroscopy to position the distal pigtail within the bladder and the proximal pigtail within the renal pelvis. The guidewire was then removed. Postplacement imaging is satisfactory positioning. A sterile dressing was then applied. The patient tolerated the procedure well. There were no immediate post procedure complications. Conscious sedation was performed under the guidance of radiologic nursing. Continuous cardiopulmonary monitoring was utilized. Depression: Nephrostograms through indwelling nephrostomy tube. 2) Fluoroscopic guided placement of ureteral stent. 3) Removal of indwelling nephrostomy tube
[2018-11-20 14:36] VITALS: BP 118/72
== END 2018-11-20 15:00 | disposition home or self-care (01) ==
LOC: CATHLABREC 10:00
PROVIDERS: ATTEND Radiology Diagnostic Radiology
DX: N20.0 Calculus of kidney (principal); N28.89 Other specified disorders of kidney and ureter; Z79.01 Long term (current) use of anticoagulants; Z88.0 Allergy status to penicillin; Z87.891 Personal history of nicotine dependence; Z86.711 Personal history of pulmonary embolism; Z98.890 Other specified postprocedural states
CPT/HCPCS: 36415; 50389; 50694; 80048; 85027; 85610; 85730; 96365; 99156; C1751; C1769; C2617; J1200; J1956; J2250; J3010; J7040; Q9967

== ENCOUNTER 2020-06-14 08:48 | Observation (INO) | payer BC, MEDICARE ==
[~2020-06-14 08:48] MED LIST changes: +LACTATED RINGERS 1,000 ML IV SCH; -NACL 0.9% 1000 ML 1,000 ML IV SCH; -VANCOMYCIN/NS 1 GM/250 ML 1 GM/250 ML BAG IV NR
[2020-06-14] MEDS ORDERED: fentaNYL 100 MCG/2 ML INJ IV PRN (10:08)
--- NOTE | 2020-06-14 10:08 | Anesthesia Day of Surgery ---
Anesthesia Day of Surgery - Day of Surgery Patient Examined: Yes Patient H&P Reviewed: Yes Patient is NPO: Yes
--- NOTE | 2020-06-14 10:08 | Anesthesia Consultation ---
Anesthesia Consult and Med Hx Date of service: 06/14/20 - Airway Anesthetic Teeth Evaluation: Poor ROM Head & Neck: Adequate Mental/Hyoid Distance: Adequate Mallampati Class: Class II Intubation Access Assessment: Probably Good - Pulmonary Exam CTA: Yes - Cardiac Exam Cardiac Exam: RRR - Pre-Operative Health Status ASA Pre-Surgery Classification: ASA2 Proposed Anesthetic Plan: General - Pulmonary Hx Smoking: Yes (quit <40yrs) Hx Respiratory Symptoms: No Hx Sleep Apnea: No (JOSEPH PRE SCREEN LOW RISK) - Cardiovascular System Hx Hypertension: No Hx Heart Attack/AMI: No Hx Percutaneous Transluminal Coronary Angioplasty (PTCA): No Hx Cardia Arrhythmia: Yes (asymptomatic bradycardia) - Central Nervous System CVA: No Hx Psychiatric Problems: No - Gastrointestinal Hx Gastroesophageal Reflux Disease: No - Endocrine Hx Renal Disease: No Hx Liver Disease: No Hx Insulin Dependent Diabetes: No Hx Non-Insulin Dependent Diabetes: No Hx Thyroid Disease: No - Other Systems Hx Obesity: Yes (BMI 33) - Additional Comments Anesthesia Medical History Comments: Hx PE 1999; no longer on anticoagulation
[2020-06-14] MEDS ORDERED: MIDAZOLAM 2 MG/2 ML INJ IV NR (10:09)
[2020-06-14] MEDS ORDERED: GENTAMICIN 160 MG in SODIUM CHLORIDE 0.9% 100 ML IV SCH (11:30)
[2020-06-14] MEDS ORDERED: LIDOCAINE MPF (2%) 20 MG/1 ML VIAL 5 ML ONE (12:06)
[2020-06-14] MEDS ORDERED: fentaNYL 100 MCG/2 ML INJ ONE ×2 (12:06→12:58)
[2020-06-14] MEDS ORDERED: ONDANSETRON 4 MG/2 ML INJ ONE (12:06)
[2020-06-14] MEDS ORDERED: propofoL 200 MG/20 ML VIAL IV ONE ×2 (12:07→12:53)
[2020-06-14] MEDS ORDERED: WATER FOR IRRIG STERILE 2000 ML IR ONE (12:48)
[2020-06-14] MEDS ORDERED: HYDROmorphone 1 MG/1 ML INJ ONE (13:06)
[2020-06-14] MEDS ORDERED: ROCURONIUM 50 MG/5 ML INJ IV ONE (13:30)
[2020-06-14] MEDS ORDERED: dexAMETHasone 20 MG/5 ML VIAL ONE (13:46)
[2020-06-14] MEDS ORDERED: GLYCOPYRROLATE 0.4 MG/2 ML INJ ONE (13:46)
[2020-06-14] MEDS ORDERED: NEOSTIGMINE 10MG/10 ML INJ MDV ONE (13:46)
[2020-06-14] MEDS ORDERED: LACTATED RINGERS 1,000 ML ONE ×2 (14:09→16:16)
[2020-06-14] MEDS ORDERED: hydrALAZINE 20 MG/1 ML INJ ONE (14:37)
[2020-06-14] MEDS ORDERED: hydrALAZINE 20 MG/1 ML INJ IV PRN (14:37)
[2020-06-14] MEDS ORDERED: SODIUM CHLORIDE 0.9% IRR 1,000 ML BOTTLE IR PRN (14:46)
[2020-06-14] MEDS ORDERED: HYDROcodone/ACETAMINOPHEN 5-325 MG TAB PO PRN (14:46)
[2020-06-14] MEDS ORDERED: MORPHINE 2 MG/1 ML INJ IV PRN (14:46)
[2020-06-14] MEDS ORDERED: ZOLPIDEM 5 MG TAB PO PRN (14:46)
[2020-06-14] MEDS ORDERED: ONDANSETRON 4 MG ODT TAB PO PRN (14:46)
--- NOTE | 2020-06-14 14:46 | Post Operative Note ---
Date of procedure: 06/14/20 Pre-op diagnosis: bladder ston bph Post-op diagnosis: same Findings: huge stone Procedure: spt open cyto lithotomy Anesthesia: GETA Surgeon: KRISSY AVITIA Estimated blood loss: minimal Pathology: list (stone) Specimen disposition: given to patient/family Condition: stable Disposition: PACU
[2020-06-14] MEDS ORDERED: D5W/0.45% NACL/KCL 20 MEQ 20 MEQ/1,000 ML BAG IV SCH (15:00)
[2020-06-14] MEDS ORDERED: GENTAMICIN/NS 80 MG/100 ML 100 ML IV SCH (15:00)
[2020-06-14] MEDS ORDERED: SODIUM CHLORIDE IRRI 1000 ML 1,000 ML IR ONE (16:21)
[2020-06-14] MEDS ORDERED: D5W/0.45% NACL/KCL 20 MEQ 20 MEQ/1,000 ML BAG IV ONE (16:33)
[2020-06-14] MEDS ORDERED: MORPHINE 2 MG/1 ML INJ ONE (19:47)
[2020-06-14] MEDS: DOCUSATE SODIUM 100 MG CAP PO SCH (22:58)
[2020-06-15] MEDS: GENTAMICIN/NS 80 MG/100 ML 100 ML IV SCH ×2 (00:01→06:23)
--- NOTE | 2020-06-15 08:38 | Progress Note ---
Assessment and Plan diamond po dressing changed drain removed Subjective Date of service: 06/15/20 Principal diagnosis: bladder stone Objective - Constitutional Vitals: Vital Signs - 12hr 06/15/20 06/15/20 05:47 07:13 Temperature 98.7 F 98.5 F Pulse Rate 57 L 51 L Respiratory 16 20 Rate Blood Pressure 132/79 121/71 O2 Sat by Pulse 94 95 Oximetry General appearance: Present: no acute distress - Neck Neck: supple - Respiratory Respiratory effort: normal Extremities: no ischemia - Gastrointestinal General gastrointestinal: Present: soft, non-tender Medications & Allergies - Medications Allergies/Adverse Reactions: Allergies levofloxacin [From Levaquin] Allergy (Verified 06/04/20 11:09) Itching Penicillins Allergy (Verified 03/12/18 22:51) Itching Home Medications: Home Medications Medication Instructions Recorded Confirmed Last Taken Type No Known Home Medications [No 11/05/18 06/04/20 Unknown History Reported Home Medications] Active Medications: Generic Name Dose Route Start Last Admin Trade Name Freq PRN Reason Stop Dose Admin Acetaminophen/Hydrocodone Bitart 2 each 06/14/20 14:46 [place] 5/325 PO Q4H PRN Pain, Moderate (4-6) Docusate Sodium 100 mg 06/14/20 22:00 06/14/20 22:58 Colace PO 100 mg BID TISH Administration Hydralazine HCl 5 mg 06/14/20 14:37 06/14/20 14:30 Apresoline IV 5 mg Q30MIN PRN Administration Blood Pressure Potassium Chloride/Dextrose/Sod Cl 20 meq in 1,000 mls @ 125 mls/hr 06/14/20 15:00 D5w/0.45% Nacl/Kcl 20 Meq IV DIRECT TISH Gentamicin Sulfate/Sodium Chloride 100 mls @ 200 mls/hr 06/14/20 20:30 06/15/20 06:23 Gentamicin/Ns 80 Mg/100 Ml IV 06/15/20 12:59 200 mls/hr Q8H TISH Administration Protocol Morphine Sulfate 2 mg 06/14/20 14:46 06/14/20 19:48 Morphine IV 2 mg Q4H PRN Administration Pain, Moderate (4-6) Ondansetron HCl 4 mg 06/14/20 14:46 Zofran Odt PO Q8H PRN Nausea And Vomiting Sodium Chloride 30 ml 06/14/20 14:46 Nacl 0.9% IR Q2H PRN Wound Care Zolpidem Tartrate 5 mg 06/14/20 14:46 Ambien PO QHS PRN Sleep
--- NOTE | 2020-06-15 08:39 | Discharge Summary ---
Short Stay Discharge Plan Activity: other (no straing ) Weight Bearing Status: Full Weight Bearing Diet: low fat, low salt Wound: change dressing Special Instructions: other (suprapubic tube care ) Durable Medical Equipment Needed Upon Discharge: other (as above ) Follow up with: RADHA DOWLING MD [Primary Care Provider] - 7 Days KRISSY AVITIA MD [Staff Physician] - 7 Days
[2020-06-15] MEDS: DOCUSATE SODIUM 100 MG CAP PO SCH (11:09)
--- NOTE | 2020-06-15 11:10 | Operative Report ---
PREOPERATIVE DIAGNOSES: Huge bladder stone, severe obesity and enlarged prostate. POSTOPERATIVE DIAGNOSES: Huge bladder stone, severe obesity and enlarged prostate. DESCRIPTION OF PROCEDURE: The patient was brought to the operating room and placed on the operating table. Following induction of anesthesia, placed over the breaking table, prepped and draped in usual sterile fashion. A Quevedo catheter was placed. A Pfannenstiel incision was made, carried through skin and superficial fascial layers to the rectus fascia. This was opened and the muscle was dissected free. Midline was identified and opened. Bladder was full. The bladder wall was quite thick and about half an inch at least thick. We opened the bladder and it is a huge stone, 5 plus cm, which was solid as a rock. The patient had smaller stone 1 cm about a year ago, never followed up. The stone is now about 5 cm. The patient tolerated the procedure well. Wound was irrigated. There were no other stones seen. Quevedo was left in place and suprapubic 20-Tamazight Mal[place], which we trimmed the two ends, was placed. [place] drains in the suprapubic placed in a separate stab wound. The bladder was closed with 2-3 layers of Vicryl and chromic. A watertight closure was accomplished. The patient tolerated the procedure well. The fascia was closed with 0 looped PDS after the muscle was approximated and superficial fascia with 2-0 Vicryl and skin with clips. He was brought to recovery room, minimal blood loss with the suprapubic tube and Quevedo in stable condition. JOB# [id number] LIOR/MICHAEL
[2020-06-15 11:44] VITALS: BP 147/80
== END 2020-06-15 13:50 | disposition home or self-care (01) ==
LOC: OR 08:48 → 3A 14:46 → 3B-SURG 19:43
PROVIDERS: ADMIT Urology; ATTEND Urology
DX: N21.0 Calculus in bladder (principal); Z20.828 Contact with and (suspected) exposure to other viral communicable diseases; N40.0 Benign prostatic hyperplasia without lower urinary tract symptoms; E66.9 Obesity, unspecified; Z68.33 Body mass index [BMI] 33.0-33.9, adult
CPT/HCPCS: 51050; 96361; 96365; 96366; 96375; A4217; G0378; J0360; J1100; J1170; J1580; J2250; J2270; J2405; J2704; J2710; J3010; J7120; U0003

== ENCOUNTER 2020-07-12 07:23 | Outpatient (CLI) | payer BC, MEDICARE ==
--- NOTE | 2020-07-12 10:09 | Fluoroscopy Report ---
FLUOROSCOPY CYSTOGRAM VOIDING HISTORY: Kidney stone COMPARISON: None. FINDINGS: Outboard Motorboat Operator film of the pelvis demonstrates a suprapubic catheter in position. No obvious nephrolithiasis o r bladder stone. The bladder was filled with approximately 300 cc of water-soluble contrast through the suprapubic cat heter. There is normal filling of the bladder. No evidence for filling defect. On the left anterior o blique image, a small to medium [place] diverticulum projects from the anterior fundus. The voiding images are slightly limited due to poor urine flow but the urethra appears patent and nor mal caliber. No urethral abnormality is detected. A small post void residual was present. IMPRESSION: Bladder diverticulum is identified as described, otherwise, the bladder is within normal limits. No f illing defect or vesicoureteral reflux. There was poor urine flow during the voiding portion of this exam although no discrete ureteral abnor mality is appreciated. Small post void residual. Fluoroscopy time: 4.4 minutes Fluoroscopic images: 36 Signer Name: Corey Ruelas Jr, MD Signed: 07/12/2020 10:05 AM Workstation Name: [id number]
== END 2020-07-12 07:24 | disposition home or self-care (01) ==
LOC: FLUORO 07:23
PROVIDERS: ATTEND Urology
DX: N32.3 Diverticulum of bladder (principal); N20.0 Calculus of kidney
CPT/HCPCS: 51600; 74455; Q9958

== ENCOUNTER 2020-07-27 17:51 | Emergency (ER) | payer BC, MEDICARE ==
[2020-07-27 18:17] VITALS: BP 167/87
== END 2020-07-28 08:03 | disposition left against medical advice (07) ==
LOC: ED 17:51
DX: N48.89 Other specified disorders of penis (principal); Z53.21 Procedure and treatment not carried out due to patient leaving prior to being seen by health care provider

== ENCOUNTER 2020-07-29 06:41 | Observation (INO) | payer BC, MEDICARE ==
[2020-07-29 07:40] LABS: Basophils % (Auto) 0.9 % (0.0-1.8); Eosinophils # (Auto) 0.2 K/mm3 (0.0-0.4); Eosinophils % (Auto) 3.7 % (0.0-4.3); Hematocrit 42.6 % (35.5-45.6); Hemoglobin 14.5 gm/dl (11.8-15.2); Lymphocytes # (Auto) 1.3 K/mm3 (1.2-5.4); Lymphocytes % (Auto) 25.4 % (13.4-35.0); Mean Corpuscular HGB Conc 34 % (32-34); Mean Corpuscular Volume 92 fl (84-94); Monocytes # (Auto) 0.4 K/mm3 (0.0-0.8); Monocytes % (Auto) 8.3 % (0.0-7.3); Platelet Count 168 K/mm3 (140-440); Red Blood Count 4.63 M/mm3 (3.65-5.03); Red Cell Distribution Width 14.1 % (13.2-15.2)
[2020-07-29 07:48] LABS: BUN/Creatinine Ratio 6; Blood Urea Nitrogen 7 mg/dL (9-20); Calcium 11.6 mg/dL (8.4-10.2); Hemolysis Index 3
[2020-07-29 07:53] LABS: INR 1.15 (0.87-1.13)
[2020-07-29 07:54] LABS: Partial Thromboplastin Time 29.5 Sec. (24.2-36.6)
[2020-07-29] MEDS ORDERED: SODIUM CHLORIDE 0.9% 500 ML 500 ML IV SCH (08:00)
[2020-07-29] MEDS ORDERED: LIDOCAINE (2%) 20 MG/1 ML VIAL 20 ML MDV INFILTRATI ONE (08:16)
[2020-07-29] MEDS ORDERED: SODIUM CHLORIDE IRRI 500 ML 500 ML IR ONE (08:16)
[2020-07-29] MEDS ORDERED: SODIUM CHLORIDE 0.9% 250ML 250 ML ONE (08:16)
--- NOTE | 2020-07-29 08:27 | Short Stay Summary ---
Short Stay Documentation Date of service: 07/29/20 - History Principal diagnosis: Suprapubic catheter stuck Past Medical History: other (Prostate hypertrophy) Past Surgical History: TURP, Other (Suprapubic catheter placement) Social history: no significant social history - Allergies and Medications Current Medications: Allergies levofloxacin [From Levaquin] Allergy (Verified 06/04/20 11:09) Itching Penicillins Allergy (Verified 03/12/18 22:51) Itching Home Medications Medication Instructions Recorded Confirmed Last Taken Type Nitrofurantoin Macrocrystal 100 mg PO DAILY 07/29/20 07/29/20 07/28/20 History [Nitrofurantoin] Active Medications Sodium Chloride (Nacl 0.9% 500 Ml) 500 mls @ 50 mls/hr IV DIRECT TISH - Physical exam General appearance: no acute distress Integumentary: no rash, no growths HEENT: Atraumatic Lungs: Normal air movement Breasts: deferred Gastrointestinal: normal Male Genitourinary: deferred Rectal Exam: deferred Extremities: Full ROM Neurological: Normal speech - Brief post op/procedure progress note Date of procedure: 07/29/20 Pre-op diagnosis: Suprapubic catheter stuck Post-op diagnosis: same Procedure: Fluoroscopic guided drainage catheter evaluation, angioplasty of track Anesthesia: local Surgeon: MADDY MARIE Estimated blood loss: none Condition: stable - Disposition Condition at discharge: Good Short Stay Discharge Plan Activity: advance as tolerated Weight Bearing Status: Weight Bear as Tolerated Diet: regular Wound: keep clean and dry, per your surgeon's advice Follow up with: PRIMARY CAREMD [Primary Care Provider] - 7 Days
[2020-07-29] MEDS: MIDAZOLAM 2 MG/2 ML INJ ONE ×2 (08:49→09:17)
[2020-07-29] MEDS: fentaNYL 100 MCG/2 ML INJ ONE ×3 (08:49→09:19)
--- NOTE | 2020-07-29 09:40 | Operative Report ---
Operative Report Operative Report: Exam: Fluoroscopic guided evaluation of suprapubic catheter with contrast injection, balloon angioplasty of catheter tract Clinical indication: Patient with a history of suprapubic catheter which was placed approximately 6 weeks ago following bladder stone extraction. Unable to remove in office Date: 07/29/2020 Procedure: Following an explanation of the risk, benefits and alternatives; written informed consent was obtained. The patient was brought to the cardiac Archeology Faculty Member and placed in supine position on the examination table. Initial sales representative cash registers images of the abdomen demonstrated appropriate position of the suprapubic catheter. There is retraction of the catheter approximately 3 cm with a suture no longer at the skin surface. The patient's abdomen and catheter were prepped and draped in the usual sterile fashion. 1% lidocaine was used for anesthesia at the catheter exit site and along the tract. Contrast was injected to the indwelling catheter under fluoroscopy. There is occlusion of the catheter approximately 1 cm below the end. The catheter is freely mobile. Catheter and guidewire were attempted to manipulate through the occlusion. Patient appears to have formed stones around the catheter. 0.035 guidewire and vertebral catheter were then manipulated alongside the indwelling suprapubic catheter. Sequential dilation of the catheter tract was performed using a 24 [place] followed by 30 Marshallese balloon. Attempts to remove the catheter through the enlarged track were unsuccessful. At this point, the catheter and guidewire were securely fastened to the skin surface. A Quevedo catheter was placed and the patient transferred to the PACU to undergo cystoscopy. The patient tolerated the procedure well. There were no immediate postprocedure complications. Conscious sedation was performed under the guidance of radiologic nursing. Continuous cardiopulmonary monitoring was utilized. IMPRESSION: 1) Fluoroscopic guided evaluation of suprapubic catheter with contrast injection demonstrating occlusion of the catheter secondary to stone formation. The catheter is freely mobile and is able to be both spun and pushed in and withdrawn without difficulty. 2) Sequential dilation of the catheter tract with attempted removal of the catheter. 3) Given the large stone that has formed around the end of the catheter, the patient will be taken to cystoscopy and undergo stone removal which will allow the catheter to collapse and then be removed by urology.
[2020-07-29] MEDS ORDERED: GENTAMICIN/NS 80 MG/100 ML 100 ML IV SCH ×2 (11:00→15:00)
[2020-07-29] MEDS ORDERED: LACTATED RINGERS 1,000 ML ONE (11:19)
[2020-07-29] MEDS: LACTATED RINGERS 1,000 ML IV SCH ×2 (11:20→17:41)
--- NOTE | 2020-07-29 11:32 | Anesthesia Consultation ---
Anesthesia Consult and Med Hx Date of service: 07/29/20 - Airway Anesthetic Teeth Evaluation: Poor ROM Head & Neck: Adequate Mental/Hyoid Distance: Adequate Mallampati Class: Class III Intubation Access Assessment: Probably Good (previous easy intubation with MAC 4) - Pulmonary Exam CTA: Yes - Cardiac Exam Cardiac Exam: RRR - Pre-Operative Health Status ASA Pre-Surgery Classification: ASA2 Proposed Anesthetic Plan: General - Pulmonary Hx Smoking: Yes (quit <40yrs) Hx Respiratory Symptoms: No Hx Sleep Apnea: No (JOSEPH PRE SCREEN LOW RISK) - Cardiovascular System Hx Hypertension: No Hx Heart Attack/AMI: No Hx Percutaneous Transluminal Coronary Angioplasty (PTCA): No Hx Cardia Arrhythmia: Yes (asymptomatic bradycardia) - Central Nervous System CVA: No Hx Psychiatric Problems: No - Gastrointestinal Hx Gastroesophageal Reflux Disease: No - Endocrine Hx Renal Disease: No Hx Liver Disease: No Hx Insulin Dependent Diabetes: No Hx Non-Insulin Dependent Diabetes: No Hx Thyroid Disease: No - Other Systems Hx Cancer: No Hx Obesity: Yes (BMI 39) - Additional Comments Anesthesia Medical History Comments: No hx anesthetic complications. Patient received conscious sedation (versed/fentanyl) >2hrs ago for attempted removal of suprapubic catheter which was unsuccessful. Now scheduled for cystoscopy in OR. Patient is alert, oriented, and understands the current plan for surgery. He is able to provide consent for anesthesia at this time.
[2020-07-29] MEDS ORDERED: fentaNYL 100 MCG/2 ML INJ IV PRN (11:35)
--- NOTE | 2020-07-29 11:35 | Anesthesia Day of Surgery ---
Anesthesia Day of Surgery - Day of Surgery Patient Examined: Yes Patient H&P Reviewed: Yes Patient is NPO: Yes
[2020-07-29] MEDS ORDERED: propofoL 200 MG/20 ML VIAL IV ONE (12:04)
[2020-07-29] MEDS ORDERED: HYDROmorphone 1 MG/1 ML INJ ONE ×2 (12:04→13:05)
[2020-07-29] MEDS ORDERED: LIDOCAINE MPF (2%) 20 MG/1 ML VIAL 5 ML ONE (12:04)
[2020-07-29] MEDS ORDERED: GLYCOPYRROLATE 0.4 MG/2 ML INJ ONE (12:35)
[2020-07-29] MEDS ORDERED: SUCCINYLCHOLINE CHLORIDE 200 MG/10 ML INJ MDV ONE (12:55)
[2020-07-29] MEDS ORDERED: ROCURONIUM 50 MG/5 ML INJ IV ONE (12:55)
[2020-07-29] MEDS ORDERED: WATER FOR IRRIG STERILE 2000 ML IR ONE (13:00)
[2020-07-29] MEDS ORDERED: ONDANSETRON 4 MG/2 ML INJ ONE (13:23)
[2020-07-29] MEDS ORDERED: ZOLPIDEM 5 MG TAB PO PRN (14:37)
[2020-07-29] MEDS ORDERED: SODIUM CHLORIDE 0.9% IRR 1,000 ML BOTTLE IR PRN (14:37)
[2020-07-29] MEDS ORDERED: ONDANSETRON 4 MG/2 ML INJ IV PRN (14:37)
[2020-07-29] MEDS ORDERED: ACETAMINOPHEN 325 MG TAB PO PRN (14:37)
[2020-07-29] MEDS ORDERED: oxyCODONE /ACETAMINOPHEN 5-325MG TAB PO PRN (14:37)
--- NOTE | 2020-07-29 14:37 | Post Operative Note ---
Date of procedure: 07/29/20 Pre-op diagnosis: ecrusted spt Post-op diagnosis: same Findings: mushroom stone Procedure: cysto laser spt Surgeon: KRISSY AVITIA Estimated blood loss: minimal Pathology: list (stones) Specimen disposition: to lab Condition: stable Disposition: PACU
--- NOTE | 2020-07-29 15:52 | Operative Report ---
PREOPERATIVE DIAGNOSIS: Embedded encrusted a suprapubic tube with recurrent bladder stones. POSTOPERATIVE DIAGNOSIS: Embedded encrusted a suprapubic tube with recurrent bladder stones. PROCEDURE: Cystoscopy, suprapubic tube exchange after laser of stone around it. SURGEON: Dr. Iverson. ANESTHESIA: General. FINDINGS: This is a gentleman, who had a huge stone, the size have been bigger than an egg, removed about 5 weeks ago. He came for suprapubic tube removal and it would not budge. We sent him to x-ray interventional and nothing would go through it, it looks like it was encrusted, but we did see a large stone. We tried ballooning the tract, nothing worked. He now presents for treatment. DESCRIPTION OF PROCEDURE: The patient was brought to the operating room and placed on the operating table. Following induction of anesthesia, placed in lithotomy position, prepped and draped in usual sterile fashion. Once again, cystourethroscopy showed a very long 5 cm prostatic urethra. The bladder was not very trabeculated. We could see the wire alongside the tube and we see the tube totally encrusted what looks like a mushroom type stone. Using the laser, we were able to laser all the fragments around it and we washed it out with the Ellik. We then were able to remove the tube and place a 22-suprapubic tube Councill over the wire and removed the wire. We then placed a Quevedo after we Ellik out all the clots and debris. The patient tolerated the procedure well. We thought we were going to have to open him, we did not. Estimated blood loss was less than 50 mL. He was brought to recovery room with a clear Lu drip through the urethral catheter. JOB# [id number] LIOR/MICHAEL
[2020-07-29] MEDS ORDERED: TAMSULOSIN 0.4 MG CAP PO SCH (18:00)
[2020-07-29] MEDS: GENTAMICIN/NS 80 MG/100 ML 100 ML IV SCH (21:00)
[2020-07-29] MEDS: SODIUM CHLORIDE 0.9% IRRIG SOLN 2000 ML IR SCH (23:03)
[2020-07-30] MEDS: SODIUM CHLORIDE 0.9% IRRIG SOLN 2000 ML IR SCH (01:52)
[2020-07-30] MEDS: GENTAMICIN/NS 80 MG/100 ML 100 ML IV SCH (03:35)
[2020-07-30] MEDS: LACTATED RINGERS 1,000 ML IV SCH (03:35)
--- NOTE | 2020-07-30 12:57 | Progress Note ---
Subjective Date of service: 07/30/20 Principal diagnosis: Suprapubic catheter stuck Interval history: post op--- Dr. Murillo looks good wilson & SPT home with both pt has macorbid & norco Objective - Constitutional Vitals: Vital Signs - 12hr 07/30/20 07/30/20 04:52 08:00 Temperature 98.9 F Pulse Rate 65 Respiratory 18 16 Rate Blood Pressure 119/64 O2 Sat by Pulse 98 Oximetry - Labs CBC & Chem 7: 07/29/20 07:30 07/29/20 07:30 Medications & Allergies - Medications Allergies/Adverse Reactions: Allergies levofloxacin [From Levaquin] Allergy (Verified 06/04/20 11:09) Itching Penicillins Allergy (Verified 03/12/18 22:51) Itching Home Medications: Home Medications Medication Instructions Recorded Confirmed Last Taken Type Nitrofurantoin Macrocrystal 100 mg PO DAILY 07/29/20 07/29/20 07/28/20 History [Nitrofurantoin] Active Medications: Generic Name Dose Route Start Last Admin Trade Name Freq PRN Reason Stop Dose Admin Acetaminophen 650 mg 07/29/20 14:37 Tylenol PO Q4H PRN Pain MILD(1-3)/Fever >100.5/COOK Sodium Chloride 500 mls @ 50 mls/hr 07/29/20 08:00 Nacl 0.9% 500 Ml IV DIRECT TISH Lactated Ringer's 1,000 mls @ 100 mls/hr 07/29/20 12:00 07/30/20 03:35 Lactated Ringers IV 100 mls/hr DIRECT TISH Administration Ondansetron HCl 4 mg 07/29/20 14:37 Zofran IV Q8H PRN Nausea And Vomiting Oxycodone/Acetaminophen 2 tab 07/29/20 14:37 Percocet 5/325 PO Q6H PRN Pain, Moderate (4-6) Sodium Chloride 30 ml 07/29/20 14:37 Nacl 0.9% IR Q2H PRN Wound Care Sodium Chloride 2,000 ml 07/29/20 15:00 07/30/20 01:52 Nacl 0.9% IR 2,000 ml DIRECT TIHS Administration Tamsulosin HCl 0.4 mg 07/29/20 18:00 07/29/20 17:40 Flomax PO 0.4 mg QPM TISH Administration Zolpidem Tartrate 5 mg 07/29/20 14:37 Ambien PO QHS PRN Sleep
[2020-07-30 16:24] VITALS: BP 118/69
== END 2020-07-30 18:51 | disposition home or self-care (01) ==
LOC: CATHLABREC 06:41 → 3A 14:37
PROVIDERS: ADMIT Urology; ATTEND Radiology Diagnostic Radiology
DX: N21.0 Calculus in bladder (principal); Z88.0 Allergy status to penicillin; Z88.1 Allergy status to other antibiotic agents
CPT/HCPCS: 36415; 51600; 52353; 74430; 80048; 82365; 85025; 85610; 85730; 87641; 96361; 96365; 96366; A4217; C1726; C1769; G0378; J0330; J1170; J1580; J2250; J2704; J3010; J7050; J7120; J2405; Q9967